=== PATIENT | male | born 1960 | race Caucasian/White ===

== ENCOUNTER → 2020-01-12 08:29 | Outpatient (BNVA) | payer MEDICARE, MEDICAID, SELFPAY | PROVIDERS: Family Provider Nurse Practitioner Family; PCP Nurse Practitioner Family; Referring Provider Nurse Practitioner Family; Visit Provider Specialist | DX: M79.641 Pain in right hand (principal) | CPT/HCPCS: 73130 ==

== ENCOUNTER → 2020-01-18 10:15 | Outpatient (BNVA) | payer MEDICARE, MEDICAID, SELFPAY | PROVIDERS: Family Provider Nurse Practitioner Family; PCP Nurse Practitioner Family; Visit Provider Internal Medicine | DX: M65.341 Trigger finger, right ring finger (principal) | CPT/HCPCS: 87635 ==

== ENCOUNTER 2020-01-20 08:51 | Day surgery (SDC) | payer MEDICARE, MEDICAID, SELFPAY ==
[2020-01-19 12:37] VITALS: BMI 34.9
[2020-01-20 09:05] VITALS: BP 151/97; PULSE 84; RESP 15; TEMP 36.7; O2SAT 96
[2020-01-20 09:16] LABS: Glucose Point of Care 91 mg/dL (70-110)
[2020-01-20] MEDS: CELEcoxib 200 mg Capsule 400 MG PO (09:24)
[2020-01-20] MEDS: sodium chloride 0.9% 1,000 ML 30 ML IV (09:24)
--- NOTE | 2020-01-20 10:40 | ANES.PREANE2 ---
Pre-Anesthetic Assessment Pre-Anesthetic Assessment: Height/Weight: Height 1.73 m Weight 104.326 kg Temp Pulse Resp BP Pulse Ox 98.1 F 84 15 151/97 96 01/20/20 09:05 01/20/20 09:05 01/20/20 09:05 01/20/20 09:05 01/20/20 09:05 Preop Diagnosis: Right ring triggering Proposed Procedure: Operation Date: 01/20/20 10:40 Proposed Procedures p Trigger Finger Release Ring Finger(Right) - Jessa Kent MD Familial anesthetic complications: None Was Beta Arvin taken within 24 hours: Yes Last intake: Intake Last Liquid Date 01/20/20 Last Liquid Time 05:00 Last Solid Date 01/19/20 Last Solid Time 20:00 Social: Social History: Tobacco Exam: Pre-Anes Outpt Exam: alert, oriented x 3, clear to auscultation bilaterally and regular rate & rhythm Airway: Cervical ROM: WNL MP: 4 Dentition: False Pulmonary: Pulmonary: COPD (2 L NC) and Sleep apnea (doesn't wear cpap) CV/HEM: CV/HEM: Afib and HTN Comments: hx vasovagal response (dx by [facility]) - says he starts coughing his neck swells up he shakes and passes out Happens if he chokes on his own swallow - has occured for years, may go months without occuring GI: GI: GERD Metabolic: Metabolic: DM and Morbid obesity Neuropsych: Neuropsych: TIA (2010) Anesthetic Plan: ASA status: 3 Anesthesia: Regional (specify below) (miguel block vs local only) Other: patient requesting no sedations Risk of > 500 ml blood loss (7ml/kg in children): No Meds/Allergies Current Medications: Current Medications Generic Name Dose Route Start Last Admin Trade Name Freq PRN Reason Stop Dose Admin Sodium Chloride 1,000 mls @ 30 ml s/hr 01/20/20 09:00 01/20/20 09:24 Sodium Chloride 0.9% IV 01/21/20 08:59 30 mls/hr .Q24H ROBERTO Administration PFSH Anesthesia PFSH: Medical History Accelerated essential hypertension COPD (chronic obstructive pulmonary disease) History of heart attack Surgical History History of carpal tunnel release right History of throat surgery Hx of appendectomy Family History Mother Stroke CAD (coronary artery disease) Social History Smoking and tobacco status: current every day smoker Data Anesthesia Other Labs: Laboratory Results - last 48 hr 01/20/20 09:12 POC Glucose 91 Cardiac Studies: No Data to Display
--- NOTE | 2020-01-20 11:42 | P.HPUD_ITS ---
Surgery/Procedure H&P Update DATE OF PROCEDURE: January 20, 2020 DATE H&P PERFORMED: 01/12/20 H&P UPDATE INFORMATION: I have reviewed H&P completed within last 30 days, I have examined patient prior to procedure, No changes to prior documentation and H&P is in [facility] on date indicated PREOP DIAGNOSIS: Right ring triggering PLANNED PROCEDURE: Operation Date: 01/20/20 10:40 Proposed Procedures p Trigger Finger Release Ring Finger(Right) - Jessa Kent MD Related Problem List Diagnoses (1) Trigger ring finger of right hand:
[2020-01-20 12:40] VITALS: BP 180/95; PULSE 80; RESP 20; TEMP 36.2; O2SAT 99
--- NOTE | 2020-01-20 12:55 | P.OP_ITS ---
Operative Report Date of procedure: January 20, 2020 Pre-op Diagnosis: Right ring triggering Post-op diagnosis: same Procedure Done: Right ring finger trigger release Specimens removed/disposition: None Pathology: none sent Surgeon: Jessa Kent Equipment Processer Storage: None Anesthesia: Other (Alessandra block without sedation) Estimated blood loss (mL): 0 Tourniquet time (min): 30 Tourniquet time: 300 mmHg IV fluids (mL): 600 Urine output (mL): 0 Complications: None Findings: Thickened A1 wilfred and synovium around the tendons Condition: stable Disposition: same day Brief History: This 59-year-old gentleman presented with complaints of significant triggering of the right ring finger. He wished to proceed with operative intervention. Risks and complications were discussed with him. Consents were signed preoperatively and questions were answered. Procedure: Patient was brought to the operating theater. He was placed on the operating room table. A Kildeer block was administered without difficulty. Patient tolerated it well. 2 g of Ancef was administered prophylactically. A tourniquet was p laced high on the arm and was elevated for the Alessandra block. This followed exsanguination of the arm. Tourniquet time was 30 minutes. Surgical pause was performed prior to commencement of the surgical procedure. At the time of the surgical pause we identified the site and side of surgery. We also identified the patient's identity and appropriate administration of IV antibiotics. Following the surgical pause, an incision was made along the distal palmar crease under the ring finger. Dissection continued through the skin to the subcutaneous tissues using a scalpel. Blunt dissection was then utilized to spread soft tissues and allow access to the A1 wilfred. Each A1 wilfred was identified. It was then incised longitudinally and sharply using a knife. This was accomplished without difficulty and atraumatically. Once the A1 wilfred was released, tendons were brought up out of the wound and evaluated. There were no gross masses on the tendons, but the synovium was noted to be quite thickened. This was released as well. Tendons were returned to normal position. We then irrigated the wound and subsequently closed it with 3-0 nylon with an interrupted mattress type suture. Following closure of the wound, the wound was injected with local anesthetic into the subcutaneous tissues. Sterile dressing was then placed consisting of Exofin, Telfa, Tegaderm, fluffed fluffs, sterile soft roll, and an Stoney wrap. The patient was returned to recovery in satisfactory condition. He will be discharged home to follow-up with me in the office. There were no complications and no specimens. Associated Problem List Diagnoses (1) Trigger ring finger of right hand:
[2020-01-20 13:14] VITALS: BP 186/91; PULSE 70; RESP 18; O2SAT 96
== END 2020-01-20 13:19 | disposition home or self-care (01) ==
PROVIDERS: PCP Nurse Practitioner Family; Visit Provider Specialist
PROC: (CPT 26055; principal; 2020-01-20 10:30)
DX: M65.341 Trigger finger, right ring finger (principal); J44.9 Chronic obstructive pulmonary disease, unspecified; G47.30 Sleep apnea, unspecified; Z99.81 Dependence on supplemental oxygen; K21.9 Gastro-esophageal reflux disease without esophagitis; E11.9 Type 2 diabetes mellitus without complications; E66.01 Morbid (severe) obesity due to excess calories; F17.210 Nicotine dependence, cigarettes, uncomplicated
CPT/HCPCS: 26055; 12345; 36416; 82962; 96365; J0131; J0690; J3490; J7030

== ENCOUNTER 2020-12-31 09:56 | Outpatient (CLI) | payer MEDICARE, MEDICAID, SELFPAY ==
--- NOTE | 2020-12-31 10:02 | CT_ITS ---
WS: [id number] LDCT LUNG CANCER SCREENING HISTORY: NICOTINE Dependence, cigarettes TECHNIQUE: Axial imaging performed from the apices to 1 cm below the costophrenic angles. Coronal and sagittal reformats are submitted with axial MIP series. All CT scans at [facility] use at least one of these dose optimization techniques: automated exposure control; mA and/or kV adjustment per patient size (includes targeted exams where dose is matched to clinical indication); or iterativ e reconstruction. DLP: 54.58 mGy.cm DIvol: 1.58 mGy COMPARISON: None available. Diagnostic quality: Satisfactory Lung Nodules: 3 mm nodule RIGHT upper lobe, image 94 series 3. No endobronchial lesions. Lungs: Moderate pulmonary hyperexpansion from emphysema. Heart: Mild scattered coronary artery calcifications. No pericardial effusion. Other findings: Mild atherosclerosis aorta. Pulmonary artery size is equal to the aorta. Small hiatal hernia. Limited evaluation of the upper abdominal structures. CT/CT lung screening 40323 IMPRESSION: LUNG-RADS: 2-Benign Appearance or Behavior FOLLOW UP: 12 Month: Continue annual screening with LDCT OTHER FINDINGS (S MODIFIER): None.
== END 2020-12-31 09:57 | disposition home or self-care (01) ==
PROVIDERS: PCP Nurse Practitioner Family; Visit Provider Nurse Practitioner Family
DX: Z12.2 Encounter for screening for malignant neoplasm of respiratory organs (principal); F17.210 Nicotine dependence, cigarettes, uncomplicated; I70.0 Atherosclerosis of aorta; K44.9 Diaphragmatic hernia without obstruction or gangrene
CPT/HCPCS: 71271

== ENCOUNTER → 2021-02-25 07:51 | Outpatient (BNVA) | payer MEDICARE, MEDICAID, SELFPAY | PROVIDERS: PCP Nurse Practitioner Family; Referring Provider Specialist; Visit Provider Nurse Practitioner | DX: R13.10 Dysphagia, unspecified (principal); G62.9 Polyneuropathy, unspecified; K21.9 Gastro-esophageal reflux disease without esophagitis; F17.200 Nicotine dependence, unspecified, uncomplicated | CPT/HCPCS: 99203; 99204 ==

== ENCOUNTER → 2021-05-29 08:43 | Outpatient (BNVA) | payer MEDICARE, MEDICAID, SELFPAY | PROVIDERS: PCP Nurse Practitioner Family; Visit Provider Internal Medicine | DX: E21.3 Hyperparathyroidism, unspecified (principal); R13.10 Dysphagia, unspecified; Z87.891 Personal history of nicotine dependence | CPT/HCPCS: 99214 ==

== ENCOUNTER 2021-06-11 13:32 | Outpatient (CLI) | payer MEDICARE, MEDICAID, SELFPAY ==
[2021-06-11 14:45] LABS: Basophils # 0.1 10^3/uL (0.0-0.1); Basophils % 0.8 %; Eosinophils # 0.1 10^3/uL (0.0-0.8); Eosinophils % 1.4 %; Hematocrit 30.5 % (42.0-52.0); Hemoglobin 8.7 g/dL (11.7-16.6); Lymphocytes # 2.5 10^3/uL (0.8-4.8); Lymphocytes % 38.2 %; Mean Corpuscular HGB Conc 28.5 g/dL (30.0-36.0); Mean Corpuscular Hemoglobin 20.3 pg (28.0-34.0); Mean Corpuscular Volume 71.3 fl (80-94); Monocytes # 0.5 10^3/uL (0.2-0.9); Monocytes % 8.2 %; Neutrophils # 3.31 10^3/uL (1.8-7.7); Neutrophils % 51.1 %; Nucleated Red Blood Cells % 0 %; Platelet Count 263 10^3/cmm (130-400); Red Blood Count 4.28 10^6/uL (4.1-5.3); Red Cell Distribution Width 18.8 % (12.1-15.1); White Blood Count 6.5 10^3/uL (4.0-10.0)
[2021-06-11 15:16] LABS: Carcinoembryonic Antigen 4.7 ng/mL (0.0-4.7)
[2021-06-11 15:27] LABS: Alanine Aminotransferase 11 U/L (0-41); Albumin Level 4.1 g/dL (3.5-5.2); Alkaline Phosphatase 90 IU/L (40-130); Anion Gap 16.4 (5-19); Aspartate Amino Transferase 12 U/L (0-40); Blood Urea Nitrogen 9 mg/dL (8-23); Calcium 8.4 mg/dL (8.5-10.5); Carbon Dioxide 24 mmol/L (22-29); Chloride 100 mmol/L (98-107); Globulin 3.3 g/dL (1.3-4.6); Glomerular Filtration Rate 114.6 mL/min (90-130); Glucose 189 mg/dL (65-115); Osmolality Calculated 288 mOsm/kg (285-295); Potassium 3.4 mmol/L (3.5-5.1); Sodium 137 mmol/L (136-145); Total Bilirubin 0.4 mg/dL (0.15-1.2); Total Protein 7.4 g/dL (6.6-8.7)
--- NOTE | 2021-06-11 16:50 | ONC CON_ITS ---
Dr. Ramos New Patient Note Patient: Ryne Carrasco Unit #: [id number]: 1960 Dicatated By: Nestor Ramos M.D.Date of Visit: Jun 11, 2021 Onc MED New Patient/Consult Referring Physician: Dr. RADHA WYLIE M.D. History of Present Illness: Mr Ryne Carrasco, is a 61-year-old gentleman status post robotic LAR for sigmoid/upper rectal adenocarcinoma on April 30, 2021. As per patient on March 10, 2021, he felt weak and tired, lethargic, went to [facility] ER in [facility], found to have severely anemic, his hemoglobin was 7.9 and also diagnosed with urine tract infection/sepsis, treated with IV antibiotics, patient responded well, he was referred to local GI physician for EGD and colonoscopy which was done in March 2021, and found to have upper rectal mass, he was referred to Dr. Wylie, patient underwent colonoscopy again on April 18, 2021, polyp from cecum was removed which was tubular adenoma and there was a upper rectal tumor, biopsy x4 were done and it shows tubular adenoma with at least high-grade dysplasia, CT scan of chest abdomen pelvis done on April 18, 2021 shows rectal mass lesion, associated with macroscopic mesorectal infiltration and multiple subcentimeter mesorectal lymph nodes, no distant metastatic disease, diffuse urinary bladder wall thickening suggestive of acute cystitis., His CEA was 20, based on clinical impression it was decided to proceed with robotic low anterior resection with en bloc resection of portion of lower anterior abdominal wall and peritoneum and excisional biopsy of edition prior to peritoneum was done on April 30, 2021. Final pathology report came back invasive moderately differentiated adenocarcinoma, tumor invades through muscularis propria into pericolorectal tissue, T3, 0 out of 44 lymph node positive for metastatic disease, no lymphovascular invasion seen, no perineural invasion seen. pT3 pN0 MX Past medical history significant for hypertension, diabetes, peripheral neuropathy, carpal tunnel syndrome, history of vocal cord warts removal, Chronic smoking, still active about pack a day, occasional alcohol use. Denies any fever chills denies any nausea or vomiting denies any diarrhea or constipation denies any melena or hematochezia but generalized weakness and fatigue. Past Medical History: Mr. Carrasco's medical history consists of atrial fibrillation, chronic obstructive pulmonary disease, and type II diabetes. Past Surgical History: Mr. 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 Medications: Acetaminophen 2 Tablet (of 325 mg) Oral q 6 hours, Albuterol Sulfate 1 Vial(s) (of (2.5 mg/3ml) 0.083%) Nebulization solution Inhalation four times a day PRN, Capsicum (Cayenne) 2 Capsule (of 450 mg) Oral daily, Cetirizine HCl 1 Tablet (of 10 mg) Oral daily, Docusate Sodium 1 Capsule (of 100 mg) Oral b.i.d. PRN, Lisinopril 1 Tablet (of 20 mg) Oral at bedtime, Lyrica 1 Capsule (of 100 mg) Oral b.i.d., Metoprolol Succinate 0.5 Capsule (of 200 mg) Capsule ER 24 Hr Sprinkle Oral daily, Ozempic (1 MG/DOSE) 1 (4 mg/3mL) Subcutaneous on , ProAir HFA 2 Puff(s) (of 108 (90 base) mcg/act) Aerosol, solution Inhalation PRN, Protonix 1 Tablet (of 40 mg) Tablet, enteric coated Oral, Rosuvastatin Calcium 1 Tablet (of 20 mg) Oral at bedtime, Vitamin D2 1 Tablet (of 1.25 mg) Oral q 2 weeks Allergies: No Known Allergies. Social History: Mr. Carrasco is . He is a daily smoker. He drinks daily. He has indicated exposure to the following products: cigarettes. Family History: There is no documented family history. Review Of Symptoms: Review of Systems is not available for this patient. Vital Signs: Performed on Jun 11, 2021 15:20: 4, 0, 35.09 (HIGH), 2.17 sq.m, 68 in, 97 %, 87 /min, 18 /min, 152/83 mm(hg) (HIGH), 98.3 F (LOW), and 230.8 lbs (HIGH). Performance Status: 0 - Fully active, able to carry on all predisease activities without restrictions. (ECOG) Physical Examination: ENMT - No mouth sores, no thrush, no jaundice, Respiratory - Lungs are clear to auscultation, Cardiovascular - Regular rate and rhythm of heart, Abdomen - Soft, bowel sounds present, Extremities - No visible edema. Lab/Imaging: Most recent lab results are not available for this patient. Impression: Moderately differentiated adenocarcinoma involving upper rectum/sigmoid colon per robotic LAR done on April 30, 2021 final pathology report confirmed tumor invades through muscularis propria into pericolorectal tissue, T3, 0 out of 44 lymph nodes positive for metastatic disease, N0, no lymphovascular invasion, no perineural invasion, as per discussion with Dr. Garcia, pathology tumor invades into mesorectal, more than 4 mm. And 1 and half centimeter into upper rectum. Iron deficiency anemia Hypertension Diabetes Neuropathy Carpal tunnel syndrome Plan: Discussed with patient regarding his Labs white blood count 6.5 hemoglobin 8.7 hematocrit 30.5 platelets 263,000 and MCV 71.3, iron studies pending and CMP pending disease status and further treatment options, clinically patient has T3, N0 moderately differentiated adenocarcinoma with no lymphovascular/perineural invasion but more than 4 mm infiltration into mesorectal tissue. As per NCCN guidelines, patient is a candidate for adjuvant combined chemoradiation with 5-FU followed by chemotherapy with FOLFOX or chemotherapy followed by chemoradiation or chemotherapy alone., Would not consider observation as his tumor invasion into the mesorectum is more than 2 mm. As per patient and his , as they understood surgeon Dr. Wylie that he (patient) would not need any more treatment rather observation, Will discuss his case with Dr. Wylie,As per his office, he will be available in the morning At this point, we will refer him to [facility] GI oncology clinic for evaluation for clinical trial and second opinion. Patient return to clinic 1 week after his visit to [place] [facility] oncology clinic, for further discussion unless enrolled into clinical trial. As far as iron deficiency anemia is concerned, will consider oral iron, ferrous sulfate 325 mg 2 tablets p.o. daily and follow his blood counts CBC and iron studies. Signed By: Nestor Ramos M.D. <<Signature on File>>
[2021-06-11 22:29] LABS: Ferritin 7 ng/mL (30-400); Iron 22 ug/dL (59-158); Percent Saturation 5.2 % (20-50); Total Iron Binding Capacity 420 mcg/dl; Unsaturated Iron Binding 398 ug/dL (112-347)
[2021-06-11 22:43] LABS: Vitamin B12 249 pg/mL (232-1245)
== END 2021-06-11 13:33 | disposition home or self-care (01) ==
LOC: ONCMED 13:39
PROVIDERS: PCP Nurse Practitioner Family; Visit Provider Internal Medicine Hematology & Oncology
DX: C18.7 Malignant neoplasm of sigmoid colon (principal); C77.8 Secondary and unspecified malignant neoplasm of lymph nodes of multiple regions; D50.9 Iron deficiency anemia, unspecified; I10 Essential (primary) hypertension; E11.8 Type 2 diabetes mellitus with unspecified complications; G62.9 Polyneuropathy, unspecified; G56.00 Carpal tunnel syndrome, unspecified upper limb
CPT/HCPCS: 36415; 80053; 82378; 82607; 82728; 83540; 83550; 85025; 99205

== ENCOUNTER 2021-07-04 10:17 | Outpatient (CLI) | payer MEDICARE, MEDICAID, SELFPAY ==
[2021-07-04 11:05] LABS: Basophils % 0.4 %; Eosinophils # 0.1 10^3/uL (0.0-0.8); Eosinophils % 1.1 %; Hematocrit 36.5 % (42.0-52.0); Hemoglobin 10.9 g/dL (11.7-16.6); Lymphocytes # 2.4 10^3/uL (0.8-4.8); Lymphocytes % 51.5 %; Mean Corpuscular HGB Conc 29.9 g/dL (30.0-36.0); Mean Corpuscular Hemoglobin 24.2 pg (28.0-34.0); Mean Corpuscular Volume 80.9 fl (80-94); Mean Platelet Volume 9.2 fL (7.4-10.4); Monocytes # 0.4 10^3/uL (0.2-0.9); Monocytes % 8.8 %; Neutrophils # 1.77 10^3/uL (1.8-7.7); Neutrophils % 38.2 %; Nucleated Red Blood Cells % 0 %; Platelet Count 189 10^3/cmm (130-400); Red Blood Count 4.51 10^6/uL (4.1-5.3); Red Cell Distribution Width 25.4 % (12.1-15.1); White Blood Count 4.6 10^3/uL (4.0-10.0)
[2021-07-04 12:22] LABS: Ferritin 24 ng/mL (30-400); Iron 31 ug/dL (59-158); Percent Saturation 8.4 % (20-50); Total Iron Binding Capacity 368 mcg/dl; Unsaturated Iron Binding 337 ug/dL (112-347)
--- NOTE | 2021-07-04 15:19 | ONC FU_ITS ---
Dr. Ramos follow up note Patient: Ryne Carrasco Unit #: [id number]: 1960 Dicatated By: Nestor Ramos M.D.Date of Visit:Jul 04, 2021 Onc Med Follow-up/Prog Note History of Present Illness: Mr Ryne Carrasco, is a 61-year-old gentleman status post robotic LAR for sigmoid/upper rectal adenocarcinoma on April 30, 2021. As per patient on March 10, 2021, he felt weak and tired, lethargic, went to [facility] ER in [facility], found to have severely anemic, his hemoglobin was 7.9 and also diagnosed with urine tract infection/sepsis, treated with IV antibiotics, patient responded well, he was referred to local GI physician for EGD and colonoscopy which was done in March 2021, and found to have upper rectal mass, he was referred to Dr. Wylie, patient underwent colonoscopy again on April 18, 2021, polyp from cecum was removed which was tubular adenoma and there was a upper rectal tumor, biopsy x4 were done and it shows tubular adenoma with at least high-grade dysplasia, CT scan of chest abdomen pelvis done on April 18, 2021 shows rectal mass lesion, associated with macroscopic mesorectal infiltration and multiple subcentimeter mesorectal lymph nodes, no distant metastatic disease, diffuse urinary bladder wall thickening suggestive of acute cystitis., His CEA was 20, based on clinical impression it was decided to proceed with robotic low anterior resection with en bloc resection of portion of lower anterior abdominal wall and peritoneum and excisional biopsy of edition prior to peritoneum was done on April 30, 2021. Final pathology report came back invasive moderately differentiated adenocarcinoma, tumor invades through muscularis propria into pericolorectal tissue, T3, 0 out of 44 lymph node positive for metastatic disease, no lymphovascular invasion seen, no perineural invasion seen. pT3 pN0 MX Past medical history significant for hypertension, diabetes, peripheral neuropathy, carpal tunnel syndrome, history of vocal cord warts removal, Chronic smoking, still active about pack a day, occasional alcohol use. Denies any fever chills denies any nausea or vomiting denies any diarrhea or constipation denies any melena or hematochezia but generalized weakness and fatigue.Patient was referred to [facility] for evaluation for clinical trial, as per discussion with Dr. Connelly, medical oncologist at [facility], patient would need adjuvant therapy, either with combined chemoradiation followed by FOLFOX or FOLFOX followed by short course of radiation therapy at [facility]. Patient [facility] [place] for follow-up, denies any specific complaints, no fever chills, no nausea or vomiting, no diarrhea constipation, no melena or hematochezia, no hemoptysis hematemesis, as per patient he had a good visit to [facility] and understood the importance of adjuvant therapy. Would consider all his treatment [facility] [place]. Medications: Acetaminophen 2 Tablet (of 325 mg) Oral q 6 hours, Albuterol Sulfate 1 Vial(s) (of (2.5 mg/3ml) 0.083%) Nebulization solution Inhalation four times a day PRN, Capsicum (Cayenne) 2 Capsule (of 450 mg) Oral daily, Cetirizine HCl 1 Tablet (of 10 mg) Oral daily, Docusate Sodium 1 Capsule (of 100 mg) Oral b.i.d. PRN, Lisinopril 1 Tablet (of 20 mg) Oral at bedtime, Lyrica 1 Capsule (of 100 mg) Oral b.i.d., Metoprolol Succinate 0.5 Capsule (of 200 mg) Capsule ER 24 Hr Sprinkle Oral daily, Ozempic (1 MG/DOSE) 1 (4 mg/3mL) Subcutaneous on , ProAir HFA 2 Puff(s) (of 108 (90 base) mcg/act) Aerosol, solution Inhalation PRN, Protonix 1 Tablet (of 40 mg) Tablet, enteric coated Oral, Rosuvastatin Calcium 1 Tablet (of 20 mg) Oral at bedtime, Vitamin D2 1 Tablet (of 1.25 mg) Oral q 2 weeks Allergies: No Known Allergies. Review of Systems: Review of Systems is not available for this patient. Vital Signs: Performed on Jul 04, 2021 14:11 Height - 68.00 in Weight - 231.0 lbs (HIGH) BSA - 2.17 sq.m BMI - 35.12 (HIGH) Temperature - 97.8 F (LOW) Pulse - 81 /min Respiration - 16 /min BP - 162/93 mm(hg) (HIGH) O2 Sat - 98 % Pain - 0 Fatigue - 2 Performance Status: 0 - Fully active, able to carry on all predisease activities without restrictions. (ECOG) Physical Examination: ENMT - No mouth sores, no thrush, no jaundice, Respiratory - Lungs are clear to auscultation, Cardiovascular - Regular rate and rhythm of heart, Abdomen - Soft, bowel sounds present, Extremities - No visible edema. Lab/Imaging: Most recent lab results are not available for this patient. Impression: Moderately differentiated adenocarcinoma involving upper rectum/sigmoid colon per robotic LAR done on April 30, 2021 final pathology report confirmed tumor invades through muscularis propria into pericolorectal tissue, T3, 0 out of 44 lymph nodes positive for metastatic disease, N0, no lymphovascular invasion, no perineural invasion, as per discussion with Dr. Garcia, pathology tumor invades into mesorectal, more than 4 mm. And 1 and half centimeter into upper rectum. Iron deficiency anemia Hypertension Diabetes Neuropathy Carpal tunnel syndrome Plan: Discussed with patient regarding his labs white blood count 4.6 hemoglobin 10.9 g compared to 8.7 g previously hematocrit 36.5 platelets 189,000 iron studies shows iron saturation 8.4% compared to 5.2% previously ferritin 24 compared to 7 and iron 31 compared to 22 previously TIBC 368, B12 249, CEA 4.7 Clinically, patient is doing reasonably well, with no new signs symptoms, patient was referred to [facility] in [place] for evaluation for clinical trial. He was evaluated by Dr. Connelly, as per discussion with her yesterday, she agreed with us regarding adjuvant therapy, patient was offered 2 options 1 would be FOLFOX biweekly x12 followed by a short course of radiation therapy at [facility] and other is a traditional combined chemoradiation with oral Xeloda followed by FOLFOX x8. Patient prefer to get all his treatment done here in [place]. In that case we will refer him to radiation oncology Dr. Carrasco for evaluation for adjuvant chemoradiation with oral Xeloda, will consider 825 mg per metered square twice daily concurrent with radiation therapy, followed by FOLFOX biweekly x8. All the side effect possible benefits associated with chemotherapy including but not limited to, nausea vomiting, hair loss, peripheral neuropathy, hand-foot syndrome, mouth sores, jaundice were mentioned, further teaching will be done by chemotherapy nurse. We will obtain approval from his insurance prior to the treatment. As far as anemia is concerned, patient is on oral iron, his hemoglobin is improving, will also consider adding B12 supplements. Patient return to clinic 1 week after his chemoradiation therapy is initiated with CBC CMP, will also consider Port-A-Cath placement prior to FOLFOX. Signed By: Nestor Ramos M.D. <<Signature on File>>
== END 2021-07-04 10:18 | disposition home or self-care (01) ==
LOC: ONCMED 10:22
PROVIDERS: PCP Nurse Practitioner Family; Visit Provider Internal Medicine Hematology & Oncology
DX: C19 Malignant neoplasm of rectosigmoid junction (principal); D50.9 Iron deficiency anemia, unspecified; I10 Essential (primary) hypertension; E11.9 Type 2 diabetes mellitus without complications; G62.9 Polyneuropathy, unspecified; Z79.899 Other long term (current) drug therapy
CPT/HCPCS: 36415; 82728; 83540; 83550; 85025; 99214

== ENCOUNTER 2021-07-10 06:43 | Outpatient (CLI) | payer MEDICARE, MEDICAID, SELFPAY ==
--- NOTE | 2021-07-10 09:08 | N.ONRAD NP_ITS ---
Radiation Oncology Consultation Patient Name: Ryne Carrasco Date of : 1960 Date of Service: 07/10/2021 Attending Physician: Chi Carrasco M.D. Ryne Carrasco was seen in consultation this morning at the request of Lise Ramos M.D. for consideration of postoperative pelvic radiotherapy in the management of a recently diagnosed rectal cancer. He was evaluated emergency department the [facility] Emergency Department in [place], [place] for fatigue. A hemoglobin of 8 g/dL was noted. An EGD and colonoscopy completed in March 2021 identified a rectal mass. He was referred to [facility] and evaluated by Johnnie Wylie M.D. A thoracoabdominopelvic CT scan ordered on April 18, 2021 demonstrated a rectal mass that was 7 cm from the anal verge. Mesorectal infiltration was described with subcentimeter perirectal lymphadenopathy identified. No evidence for metastatic disease was reported. A colonoscopy executed on April 18, 2021 revealed a cecal polyp, a proximal transverse colon polyp, and a large rectal mass. The rectal mass biopsy showed stromal desmoplasia suggesting an invasive component and a tubular adenoma was noted within the cecal polyp. The CEA level was 20 ng/mL. A laparoscopic robotic low anterior resection was performed on April 30, 2021. The pathology report (requested from the outside hospital and personally reviewed in [facility]) diagnosed a 6.6 cm x 4.5 cm moderately differentiated adenocarcinoma with invasion through the muscularis propria into the pericolorectal tissue. All surgical margins were negative for carcinoma. A total of 44 lymph nodes were harvested. There were no metastases identified. The post-operative CEA level was 4.7 ng/mL. The patient was evaluated for adjuvant radiotherapy. I discussed with Mr. Carrasco the AJCC pathological stage IIA (T3N0) rectal cancer corresponding to his disease. I also reviewed the National Comprehensive Cancer Network Guidelines recommending adjuvant chemoradiotherapy following transabdominal resection for high-risk tumors that was established by the classic study conducted by the [facility] that validated combined modality therapy improved overall survival while decreasing locoregional recurrence and distant metastases. I would endorse a five week course of pelvic radiotherapy. A computed tomographic radiotherapy planning scan with contrast in the treatment position will be acquired to identify the clinical target volumes. The potential toxicities of pelvic radiotherapy were reviewed. The patient has verbalized understanding would like to proceed as recommended. The patient's medical treatment plan was discussed with Lise Ramos M.D. Signed by: Dr. Chi Carrasco 07/10/2021 9:06:52 AM
== END 2021-07-10 06:44 | disposition home or self-care (01) ==
PROVIDERS: PCP Nurse Practitioner Family; Visit Provider Radiology Radiation Oncology
DX: C20 Malignant neoplasm of rectum (principal); C77.8 Secondary and unspecified malignant neoplasm of lymph nodes of multiple regions; D12.0 Benign neoplasm of cecum; Z79.899 Other long term (current) drug therapy
CPT/HCPCS: 99205

== ENCOUNTER → 2021-07-12 16:09 | Outpatient (BNVA) | payer MEDICARE, MEDICAID, SELFPAY | PROVIDERS: PCP Nurse Practitioner Family; Visit Provider Surgery | DX: Z01.818 Encounter for other preprocedural examination (principal) | CPT/HCPCS: 87635 ==

== ENCOUNTER → 2021-07-15 10:40 | Outpatient (BNVA) | payer MEDICARE, MEDICAID, SELFPAY | PROVIDERS: PCP Nurse Practitioner Family; Visit Provider Surgery | DX: C20 Malignant neoplasm of rectum (principal) | CPT/HCPCS: 87635 ==

== ENCOUNTER 2021-07-16 09:49 | Day surgery (SDC) | payer MEDICARE, MEDICAID, SELFPAY ==
[2021-07-15 15:30] VITALS: BMI 35.2
--- NOTE | 2021-07-16 | SCC_ITS ---
Procedure done: 1. Placement of Right subclavian vein PowerPort 2. Fluoroscopic guidance and interpretation for placement of catheter 24.6 seconds of fluoroscopic guidance, for a cumulative dose of 8.57 mGy, was provided to Dr. Hernandez by the radiology department. C-arm images of the chest were saved for the patient's permanent record. [facility]
--- NOTE | 2021-07-16 10:10 | SC_ITS ---
WS: [id number] C-arm FL for CVA [id number] REASON FOR EXAM: Powerport Placement FINDINGS: Chemotherapy infusion port in place over the right anterolateral chest. Transverse right subclavian vein catheter with the tip in the distal SVC/right atrium. No pneumothorax. SC/C-arm FL for CVA [id number] IMPRESSION: Chemotherapy infusion port and catheter placement as above.
[2021-07-16 10:24] VITALS: BP 169/103; PULSE 85; RESP 18; TEMP 36.4; O2SAT 99
[2021-07-16] MEDS: sodium chloride 0.9% 1,000 ML 30 ML IV (10:44)
--- NOTE | 2021-07-16 10:53 | ANES.PREANE2 ---
Pre-Anesthetic Assessment Height/Weight: Height 1.73 m Weight 105.233 kg Temp Pulse Resp BP Pulse Ox 97.5 F L 85 18 169/103 99 07/16/21 10:24 07/16/21 10:24 07/16/21 10:24 07/16/21 10:24 07/16/21 10:24 Preop Diagnosis: Rectal cancer Operation Date: 07/16/21 11:25 Proposed Procedures p Portacath Placement 87663/c20(Not Applicable) - Raheem Hernandez MD Was Beta Arvin taken within 24 hours: Yes Was Clonidine taken within 24 hours: N/A Last intake: Intake Last Liquid Date 07/15/21 Last Liquid Time 21:30 Last Solid Date 07/15/21 Last Solid Time 18:00 Social Tobacco and No alcohol Exam alert, oriented x 3 and clear to auscultation bilaterally Irregular rate Airway Submandibular: within normal limits Cervical ROM: within normal limits Mallampati: Class II Dentition: false History/ROS No significant history except as noted Pulmonary Chronic Obstructive Pulmonary Disease Pulm HTN CV/HEM Atrial Fibrillation and Anemia METS = 4 Hepatic None reported GI Gastroesophageal Reflux Disease Metabolic Diabetes Mellitus [facility] Osteoarthritis/DJD Neuropsych Cerebrovascular Accident (TIA) and Neuropathy Anesthetic Plan ASA status: 3 Anesthesia: Anesthesia Evaluation and General Other: We discussed risk and benefits of general anesthesia including PONV, sore throat (sometimes severe), corneal abrasion, positioning and peripheral nerve injuries, life threatening allergic reaction, post operative ICU admission requiring prolonged intubation, stroke, heart attack, , and rare incidences of recall. Patient consents to proceed with general anesthesia. Risk of > 500 ml blood loss (7ml/kg in children): No Medications/Allergies Home Medications Medication Instructions Recorded Confirmed Last Taken Type cetirizine 10 mg tablet 10 mg PO DAILY 01/12/20 07/16/21 07/15/21 History lisinopril 20 mg tablet 20 mg PO BEDTIME 01/12/20 07/16/21 07/15/21 History nitroglycerin 0.4 mg sublingual 0.4 mg SUBLINGUAL Q5M PRN 01/12/20 07/15/21 Unknown History tablet (Nitrostat) pregabalin 100 mg capsule (Lyrica) 100 mg PO BID 01/12/20 07/16/21 07/15/21 History rosuvastatin 20 mg tablet (Crestor) 20 mg PO DAILY 01/19/20 07/16/21 07/15/21 History hydrocodone 5 mg-acetaminophen 325 1 tab PO Q6H PRN #28 tab 01/20/20 07/15/21 Unknown Rx mg tablet semaglutide 1 mg/dose (2 mg/1.5 0.25 mg SUBCUT .Weekly ml 02/22/21 07/16/21 07/13/21 History mL) subcutaneous pen injector (Ozempic) albuterol sulfate 90 mcg/actuation 2 puff INHALATION Q6H PRN 03/12/21 07/16/21 07/10/21 History aerosol inhaler (ProAir HFA) ergocalciferol (vitamin D2) 1,250 1,250 mcg PO DIRECTED cap 03/12/21 07/16/21 07/13/21 History mcg (50,000 unit) capsule ipratropium 0.5 mg-albuterol 3 mg 3 ml INHALATION QID 03/12/21 07/15/21 Unknown History (2.5 mg base)/3 mL nebulization soln metoprolol tartrate 100 mg tablet 100 mg PO QAM tab 03/12/21 07/16/21 07/15/21 05:00 History pantoprazole 40 mg tablet,delayed 40 mg PO DAILY #30 tab 03/12/21 07/16/21 07/15/21 Rx release docusate sodium 100 mg capsule 100 mg PO BID 05/15/21 07/16/21 Unknown History capsicum (cayenne) 500 mg capsule 500 mg PO BID 07/10/21 07/16/21 07/15/21 History Allergies Allergy/AdvReac Type Severity Reaction Status Date / Time No Known Allergies Allergy Verified 07/15/21 15:24 Current Medications Generic Name Dose Route Start Last Admin Trade Name Freq PRN Reason Stop Dose Admin Sodium Chloride 1,000 mls @ 30 mls/hr 07/16/21 10:15 07/16/21 10:44 Sodium Chloride 0.9% IV 07/17/21 10:14 30 mls/hr .Q24H ROBERTO Administration PFSH Anesthesia Medical History Accelerated essential hypertension Atrial fibrillation Atrial fibrillation COPD (chronic obstructive pulmonary disease) Diabetes mellitus Diabetic neuropathy History of heart attack History of TIA (transient ischemic attack) Odynophagia Pulmonary hypertension Surgical History History of carpal tunnel release right History of throat surgery Hx of appendectomy S/P colon resection Family History Mother Stroke CAD (coronary artery disease) Hypertension Diabetes Son Diabetes Father , Lung CA Cancer Brother , NE @ age 45 Myocardial infarct Sister , Breast CA X1 sister Aneurysm X1 sister Cancer Brain aneurysm Social History Smoking and tobacco status: current every day smoker (2-3 ppd X50+ years (quit 2020)) Alcohol intake: never History of recent travel: No Data Anesthesia Cardiac Studies: No Data to Display
--- NOTE | 2021-07-16 11:13 | W.PM.OPSUD ---
Surgery/Procedure H&P Update DATE OF PROCEDURE: July 16, 2021 DATE H&P PERFORMED: 07/10/21 PREOP DIAGNOSIS: Rectal cancer PRIMARY INDICATION FOR PROCEDURE: The same PLANNED PROCEDURE: Operation Date: 07/16/21 11:25 Proposed Procedures p Portacath Placement 08194/c20(Not Applicable) - Raheem Hernandez MD
[2021-07-16] MEDS: lidocaine 2% INJ 20 mL INJECTION (11:43)
[2021-07-16] MEDS: heparin, porcine 1,000 unit/mL INJ 10 mL 9000 UNIT IRRIGATION (11:53)
--- NOTE | 2021-07-16 12:07 | XR_ITS ---
WS: [id number] XR chest 1V portable [id number] REASON FOR EXAM: s/p portacath placement-right side FINDINGS: Chemotherapy infusion port in place over the anterolateral right chest. Port catheter transvenous rig ht subclavian vein with the tip in the superior vena cava just above the right atrium. No right pneumothorax. The heart and mediastinum are within normal limits. Calcified granulomatous disease in both hemithoraces. No acute pulmonary parenchymal or pleural abnormality. XR/XR chest 1V portable [id number] IMPRESSION: Right chemotherapy infusion port and catheter in proper position. No acute pulmonary abnormality.
--- NOTE | 2021-07-16 12:12 | P.OP_ITS ---
Operative Report Date of procedure: July 16, 2021 Pre-op diagnosis: Preop Diagnosis Rectal cancer Post-op diagnosis: The same Procedure done: 1. Placement of Right subclavian vein PowerPort 2. Fluoroscopic guidance and interpretation for placement of catheter Implants: Right subclavian vein PowerPort placement Surgeon: Raheem Hernandez MD Senior Business Development Manager: Surgical mely Quach Anesthesia: MAC (Louann Dominguez) Estimated blood loss (mL): 5 Complications: No immediate complications Procedure: Patient was identified in the holding area and taken to the operative room and placed in supine position IV propofol was given by the anesthesia provider ,both arms were tucked,Time-out was done verifying the patient's name/date of /planned procedure and destination after the procedure, all were in agreement. SCDs confirmed to be functioning, preoperative antibiotics administered per protocol, and beta garrett protocol was confirmed, appropriate positioning of the patient was done by me. Medications were reviewed to assess for anticoagulant usage. Risks and benefits and prevention of central line associated blood stream infection (CLABSI) were discussed with the patient/CPOA, and a consent was obtained. Monitors were in place and monitored throughout the procedure. All necessary supplies were available prior to start. Hand hygiene was completed prior to starting. Maximum barrier technique was utilized including a sterile gown, sterile gloves with a hat and mask. Site was was prepped with [chlorhexidine] and a full body drape was placed. 5 mL of 2% lidocaine was injected into the skin with a 25 gauge needle. Prep& drape was done under the usual sterile technique, lidocaine 2% was injected at the site of the stick, started by Right subclavian stick that retrieved venous blood was obtained from the first stick, a guidewire was then threaded and under the guidance of fluoroscopy position was confirmed to be in the IVC and my interpretation, there was no PVC changes, at that point the guidewire was secured to the drapes with a hemostat and the needle was taken out, attention was then deviated towards creation of a pocket for the port were lidocaine 2% was injected using an 15 blade knife skin incision was created dissection using the Bovie to create a pocket for the PowerPort to be accommodated, hemostasis was secured, after the port being appropriately flushed it was inserted into the pocket and a tunneler was used to accommodate the catheter of the PowerPort to be delivered through the incision first created at the site of the stick, at that point under fluoroscopy an estimated length was measured for the catheter and was cut at the designed level, followed by that a dilator with the sheath introduced onto the guidewire the dilator and the wire were retrieved and the catheter of the port was introduced via the sheath where it was peeled off and the catheter maintained to be in the SVC that was confirmed with fluoroscopy, and the fluoroscopy interpretation was done by me throughout the entire procedure. The port was Kept in its pocket yet it did require some adjustments in the prior to closure., 3-0 Vicryl deep subdermal interrupted sutures, skin was then closed by 4-0 Monocryl as subcuticular closure. The port was appropriately flushed with heparin and venous blood was withdrawn without difficulty. The stick site was closed by 3-0 Vicryl and Dermabond was used followed by dressing. Patient tolerated the procedure well was taken to the recovery area. Count was correct at the end of the procedure I was present for the whole entire procedure Position of the catheter was checked with a postoperative chest x-ray and it was in good position without evidence of pneumothorax
[2021-07-16 12:21] VITALS: BP 165/90; PULSE 106; RESP 20; TEMP 36.4; O2SAT 93
[2021-07-16 12:25] VITALS: BP 174/94; PULSE 107; RESP 18; O2SAT 92
--- NOTE | 2021-07-16 15:15 | ANE.PACU2 ---
Inpatient post-anesthesia follow up: Airway intact: Yes Vital signs: Temperature 97.5 F Pulse Rate 107 Respiratory Rate 18 Blood Pressure 174/94 Pulse Oximetry 92 Oxygen Delivery Me thod Room Air Oxygen Flow Rate Fraction of Inspir ed Oxygen Hydration adequate: Yes Nausea and vomiting: No Pain level: 1 Mental status: Baseline
== END 2021-07-16 13:20 | disposition home or self-care (01) ==
PROVIDERS: PCP Nurse Practitioner Family; Visit Provider Surgery
PROC: (CPT 36561; principal; 2021-07-16 11:20)
DX: C20 Malignant neoplasm of rectum (principal); J44.9 Chronic obstructive pulmonary disease, unspecified; I10 Essential (primary) hypertension; I27.20 Pulmonary hypertension, unspecified; I48.91 Unspecified atrial fibrillation; K21.9 Gastro-esophageal reflux disease without esophagitis; M19.90 Unspecified osteoarthritis, unspecified site; Z86.73 Personal history of transient ischemic attack (TIA), and cerebral infarction without residual deficits; E11.42 Type 2 diabetes mellitus with diabetic polyneuropathy; Z90.49 Acquired absence of other specified parts of digestive tract; F17.210 Nicotine dependence, cigarettes, uncomplicated
CPT/HCPCS: 36561; 71045; 76000; 77001; 96374; C1788; J0690; J1644; J2250; J2704; J3010; J3490; J7030

== ENCOUNTER 2021-08-12 07:22 | Outpatient (RCR) | payer MEDICARE, MEDICAID, SELFPAY ==
--- NOTE | 2021-07-17 | CT_ITS ---
Radiation Therapy Planning CT images; total exam DLP: 1411.75 mGy-cm MTDD
[2021-07-24 08:28] LABS: Basophils % 0.5 %; Eosinophils # 0.1 10^3/uL (0.0-0.8); Eosinophils % 1.4 %; Hematocrit 38.7 % (42.0-52.0); Lymphocytes # 2.9 10^3/uL (0.8-4.8); Lymphocytes % 37.5 %; Mean Corpuscular Hemoglobin 24.9 pg (28.0-34.0); Mean Corpuscular Volume 80.3 fl (80-94); Mean Platelet Volume 9.7 fL (7.4-10.4); Monocytes # 0.5 10^3/uL (0.2-0.9); Monocytes % 6.4 %; Neutrophils # 4.13 10^3/uL (1.8-7.7); Neutrophils % 53.9 %; Nucleated Red Blood Cells % 0 %; Platelet Count 215 10^3/cmm (130-400); Red Blood Count 4.82 10^6/uL (4.1-5.3); Red Cell Distribution Width 22.5 % (12.1-15.1); White Blood Count 7.7 10^3/uL (4.0-10.0)
[2021-07-24 08:54] LABS: Alanine Aminotransferase 12 U/L (0-41); Albumin Level 4.2 g/dL (3.5-5.2); Alkaline Phosphatase 87 IU/L (40-130); Aspartate Amino Transferase 15 U/L (0-40); Blood Urea Nitrogen 7 mg/dL (8-23); Calcium 9.1 mg/dL (8.5-10.5); Carbon Dioxide 23 mmol/L (22-29); Chloride 100 mmol/L (98-107); Globulin 2.6 g/dL (1.3-4.6); Glomerular Filtration Rate 98.3 mL/min (90-130); Glucose 174 mg/dL (65-115); Osmolality Calculated 282 mOsm/kg (285-295); Sodium 135 mmol/L (136-145); Total Bilirubin 0.4 mg/dL (0.15-1.2); Total Protein 6.8 g/dL (6.6-8.7)
[2021-07-24 09:08] LABS: Anion Gap 15.2 (5-19); Potassium 3.2 mmol/L (3.5-5.1)
[2021-07-24 21:37] LABS: Carcinoembryonic Antigen 3.8 ng/mL (0.0-4.7)
[2021-07-30 13:10] LABS: Basophils # 0.1 10^3/uL (0.0-0.1); Basophils % 0.8 %; Eosinophils # 0.1 10^3/uL (0.0-0.8); Eosinophils % 1.7 %; Hematocrit 38.1 % (42.0-52.0); Hemoglobin 11.6 g/dL (11.7-16.6); Lymphocytes # 2.5 10^3/uL (0.8-4.8); Lymphocytes % 38.2 %; Mean Corpuscular HGB Conc 30.4 g/dL (30.0-36.0); Mean Corpuscular Hemoglobin 24.7 pg (28.0-34.0); Mean Corpuscular Volume 81.1 fl (80-94); Mean Platelet Volume 9.3 fL (7.4-10.4); Monocytes # 0.4 10^3/uL (0.2-0.9); Monocytes % 5.6 %; Neutrophils # 3.51 10^3/uL (1.8-7.7); Neutrophils % 53.5 %; Nucleated Red Blood Cells % 0 %; Platelet Count 222 10^3/cmm (130-400); Red Cell Distribution Width 21.8 % (12.1-15.1); White Blood Count 6.6 10^3/uL (4.0-10.0)
[2021-07-30 13:29] LABS: Alanine Aminotransferase 9 U/L (0-41); Albumin Level 4.4 g/dL (3.5-5.2); Alkaline Phosphatase 83 IU/L (40-130); Anion Gap 12.8 (5-19); Aspartate Amino Transferase 14 U/L (0-40); Blood Urea Nitrogen 6 mg/dL (8-23); Calcium 9.1 mg/dL (8.5-10.5); Carbon Dioxide 27 mmol/L (22-29); Chloride 101 mmol/L (98-107); Globulin 3.1 g/dL (1.3-4.6); Glucose 108 mg/dL (65-115); Osmolality Calculated 282 mOsm/kg (285-295); Potassium 3.8 mmol/L (3.5-5.1); Sodium 137 mmol/L (136-145); Total Bilirubin 0.6 mg/dL (0.15-1.2); Total Protein 7.5 g/dL (6.6-8.7)
--- NOTE | 2021-07-30 13:37 | ONCRAD TMN_ITS ---
Radiation Oncology Treatment Management Note Patient Name: Ryne Carrasco Date of : 1960 Date of Service: 07/30/2021 Attending Physician: Chi Carrasco M.D. Ryne Carrasco is a 61 year old white male diagnosed with a pathological stage IIA (T3N0) rectal cancer. He was evaluated emergency department the [facility] Emergency Department in [place], [place] for fatigue. A hemoglobin of 8 g/dL was noted. An EGD and colonoscopy completed in March 2021 identified a rectal mass. He was referred to [facility] and evaluated by Johnnie Wylie M.D. A thoracoabdominopelvic CT scan ordered on April 18, 2021 demonstrated a rectal mass that was 7 cm from the anal verge. Mesorectal infiltration was described with subcentimeter perirectal lymphadenopathy identified. No evidence for metastatic disease was reported. A colonoscopy executed on April 18, 2021 revealed a cecal polyp, a proximal transverse colon polyp, and a large rectal mass. The rectal mass biopsy showed stromal desmoplasia suggesting an invasive component and a tubular adenoma was noted within the cecal polyp. The CEA level was 20 ng/mL. A laparoscopic robotic low anterior resection was performed on April 30, 2021. The pathology report (requested from the outside hospital and personally reviewed in [facility]) diagnosed a 6.6 cm x 4.5 cm moderately differentiated adenocarcinoma with invasion through the muscularis propria into the pericolorectal tissue. All surgical margins were negative for carcinoma. A total of 44 lymph nodes were harvested. There were no metastases identified. The post-operative CEA level was 4.7 ng/mL. The patient has received 10 Gy of a prescribed 50 Yancey with an intensity modulated radiotherapy plan utilizing a step and shoot treatment technique. He has been prescribed daily oral chemotherapy consisting of capecitabine (825 mg/m2 bid). Upon review of systems, he denied any gastrointestinal complaints related to radiotherapy. On physical examination, the patient weighed 233 lbs. His temperature was 97.3 ???F and the blood pressure was 163/102 mmHg. His pulse was 83 bpm and the respiratory rate was 20. There was o erythema within the treatment jara. Continue pelvic radiotherapy as prescribed. Signed by: Dr. Chi Carrasco 07/30/2021 1:36:04 PM
--- NOTE | 2021-07-31 13:50 | ONC FU_ITS ---
Alma Richards Progress Note Patient: Ryne Carrasco Unit #: [id number]: 1960 Dicatated By: Alma Richards N.P.Date of Visit:Jul 31, 2021 Onc MED Follow-up/Prog Note Chief Complaint: Colorectal cancer History of Present Illness: Mr Ryne Carrasco, is a 61-year-old gentleman status post robotic LAR for sigmoid/upper rectal adenocarcinoma on April 30, 2021. As per patient on March 10, 2021, he felt weak and tired, lethargic, went to [facility] ER in [facility], found to have severely anemic, his hemoglobin was 7.9 and also diagnosed with urine tract infection/sepsis, treated with IV antibiotics, patient responded well, he was referred to local GI physician for EGD and colonoscopy which was done in March 2021, and found to have upper rectal mass, he was referred to Dr. Wylie, patient underwent colonoscopy again on April 18, 2021, polyp from cecum was removed which was tubular adenoma and there was a upper rectal tumor, biopsy x4 were done and it shows tubular adenoma with at least high-grade dysplasia, CT scan of chest abdomen pelvis done on April 18, 2021 shows rectal mass lesion, associated with macroscopic mesorectal infiltration and multiple subcentimeter mesorectal lymph nodes, no distant metastatic disease, diffuse urinary bladder wall thickening suggestive of acute cystitis., His CEA was 20, based on clinical impression it was decided to proceed with robotic low anterior resection with en bloc resection of portion of lower anterior abdominal wall and peritoneum and excisional biopsy of edition prior to peritoneum was done on April 30, 2021. Final pathology report came back invasive moderately differentiated adenocarcinoma, tumor invades through muscularis propria into pericolorectal tissue, T3, 0 out of 44 lymph node positive for metastatic disease, no lymphovascular invasion seen, no perineural invasion seen. pT3 pN0 MX Past medical history significant for hypertension, diabetes, peripheral neuropathy, carpal tunnel syndrome, history of vocal cord warts removal, Chronic smoking, still active about pack a day, occasional alcohol use. Denies any fever chills denies any nausea or vomiting denies any diarrhea or constipation denies any melena or hematochezia but generalized weakness and fatigue.Patient was referred to [facility] for evaluation for clinical trial, as per discussion with Dr. Connelly, medical oncologist at [facility], patient would need adjuvant therapy, either with combined chemoradiation followed by FOLFOX or FOLFOX followed by short course of radiation therapy at [facility]. Patient opted for all his treatment at cancer treatment center in [place] Patient presents today for follow-up after starting Xeloda. He takes it concurrently with radiation treatments Thursday through Thursday. He states he is tolerating the medication well. Initially had some nausea but that has passed he has not had any further issues with it. He denies fever, chills, night sweats. He does have mouth ulcers on his gumline. He has not been doing the salt water and baking soda mouth rinses but states that he will start. He denies cough, shortness of breath, or chest pain. No joint pain, no dizziness, no headaches. Review Of Symptoms: See above. 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 Medications: Acetaminophen 2 Tablet (of 325 mg) Oral q 6 hours Albuterol Sulfate 1 Vial(s) (of (2.5 mg/3ml) 0.083%) Nebulization solution Inhalation four times a day PRN Capsicum (Cayenne) 2 Capsule (of 450 mg) Oral daily Cetirizine HCl 1 Tablet (of 10 mg) Oral daily Docusate Sodium 1 Capsule (of 100 mg) Oral b.i.d. PRN Lisinopril 1 Tablet (of 20 mg) Oral at bedtime Lyrica 1 Capsule (of 100 mg) Oral b.i.d. Metoprolol Succinate 0.5 Capsule (of 200 mg) Capsule ER 24 Hr Sprinkle Oral daily Ozempic (1 MG/DOSE) 1 (4 mg/3mL) Subcutaneous on Sa ProAir HFA 2 Puff(s) (of 108 (90 base) mcg/act) Aerosol, solution Inhalation PRN Protonix 1 Tablet (of 40 mg) Tablet, enteric coated Oral Rosuvastatin Calcium 1 Tablet (of 20 mg) Oral at bedtime Vitamin D2 1 Tablet (of 1.25 mg) Oral q 2 weeks Family History: There is no documented family history. Social History: Mr. Carrasco is . He is a daily smoker. He drinks daily. He has indicated exposure to the following products: cigarettes. Physical Examination: Performed on Jul 31, 2021 13:27: Height - 68.00 in, Weight - 231.6 lbs (LOW), BSA - 2.18 sq.m, BMI - 35.21 (HIGH), Temperature - 98.1 F (LOW), Pulse - 84 /min, Respiration - 16 /min, BP - 162/92 mm(hg) (HIGH), O2 Sat - 98 %, Pain - 0, and Fatigue - 8. Performance Status: 0 - Fully active, able to carry on all predisease activities without restrictions. (ECOG) Constitutional Alert, cooperative, oriented. Mood and affect appropriate. Appears close to chronological age. Well nourished. Well developed. ENMT oral ulcer to lower gum. Respiratory Lungs are clear to auscultation without rhonchi or wheezing. Cardiovascular Regular rate and rhythm of heart without murmurs, gallops or rubs. Extremities No visible deformities, no cyanosis, clubbing or edema. Pulses 3+ and equal bilaterally. Musculoskeletal No tenderness or swelling, normal range of motion without obvious weakness. Integumentary No rashes, scars, or lesions suggestive of malignancy. Psychiatric Alert and oriented times three. Coherent speech. Verbalizes understanding of our discussions today. Laboratory: Test performed on Jul 24, 2021 08:14 Sodium 135 mmol/L Potassium 3.2 mmol/L Chloride 100 mmol/L CO2 23 mmol/L Anion Gap 15.2 BUN 7 mg/dL Creatinine 0.8 mg/dL Cr Clearance (Est) 145.2000 mL/min eGFR 98.3 mL/min Glucose 174 mg/dL Osmolality - Calculated 282 mOsm/kg Calcium 9.1 mg/dL Protein, Total 6.8 g/dL Albumin 4.2 g/dL Globulin 2.6 g/dL Bilirubin, Total 0.4 mg/dL ALT (SGPT) 12 U/L AST (SGOT) 15 U/L Alkaline Phosphatase 87 IU/L WBC 7.7 10 3/uL RBC 4.82 10 6/uL HGB 12.0 g/dL HCT 38.7 % MCV 80.3 fl MCH 24.9 pg MCHC 31.0 g/dL RDW 22.5 % Platelet Count 215 10 3/cmm MPV 9.7 fL Neutrophils 4.13 10 3/uL Lymphocytes 2.9 10 3/uL Monocytes 0.5 10 3/uL Eosinophils 0.1 10 3/uL Basophils 0.0 10 3/uL Neutrophil % 53.9 % Lymphocyte % 37.5 % Monocyte % 6.4 % Eosinophil % 1.4 % Basophils % 0.5 % NRBC % 0 % CEA 3.8 ng/mL Impression: Moderately differentiated adenocarcinoma involving upper rectum/sigmoid colon per robotic LAR done on April 30, 2021 final pathology report confirmed tumor invades through muscularis propria into pericolorectal tissue, T3, 0 out of 44 lymph nodes positive for metastatic disease, N0, no lymphovascular invasion, no perineural invasion, as per discussion with Dr. Garcia, pathology tumor invades into mesorectal, more than 4 mm. And 1 and half centimeter into upper rectum. Iron deficiency anemia Hypertension Diabetes Neuropathy Carpal tunnel syndrome Plan: Patient was referred to [facility] in [place] for evaluation for clinical trial. He was evaluated by Dr. Connelly, as per discussion with her yesterday, she agreed with us regarding adjuvant therapy, patient was offered 2 options 1 would be FOLFOX biweekly x12 followed by a short course of radiation therapy at [facility] and other is a traditional combined chemoradiation with oral Xeloda followed by FOLFOX x8. Patient prefer to get all his treatment done here in [place]. Labs were discussed. WBC 6.6, hemoglobin 11.6, hematocrit 38.1, platelet 222,000. Patient presents for follow-up after starting Xeloda 1800 mg twice a day concurrently with radiation therapy. He is tolerating it well. He is experiencing some mouth sores. He was instructed to do the mouth gargles with baking soda and warm salt water 3-4 times a day. He was instructed to notify us if condition worsens. Once chemo radiation is complete patient will receive FOLFOX biweekly x8. Follow-up in 1 week with CBC and CMP. Signed By: Alma Richards N.P. <<Signature on File>>
[2021-08-06 12:41] LABS: Basophils % 0.8 %; Eosinophils # 0.2 10^3/uL (0.0-0.8); Eosinophils % 3.2 %; Hematocrit 38.7 % (42.0-52.0); Hemoglobin 12.2 g/dL (11.7-16.6); Lymphocytes # 1.7 10^3/uL (0.8-4.8); Lymphocytes % 35.7 %; Mean Corpuscular HGB Conc 31.5 g/dL (30.0-36.0); Mean Corpuscular Hemoglobin 25.8 pg (28.0-34.0); Mean Corpuscular Volume 81.8 fl (80-94); Mean Platelet Volume 9.2 fL (7.4-10.4); Monocytes # 0.4 10^3/uL (0.2-0.9); Neutrophils # 2.46 10^3/uL (1.8-7.7); Neutrophils % 51.9 %; Nucleated Red Blood Cells % 0 %; Platelet Count 161 10^3/cmm (130-400); Red Blood Count 4.73 10^6/uL (4.1-5.3); White Blood Count 4.7 10^3/uL (4.0-10.0)
[2021-08-06 13:05] LABS: Alanine Aminotransferase 12 U/L (0-41); Albumin Level 4.4 g/dL (3.5-5.2); Alkaline Phosphatase 89 IU/L (40-130); Anion Gap 13.5 (5-19); Aspartate Amino Transferase 16 U/L (0-40); Blood Urea Nitrogen 6 mg/dL (8-23); Calcium 9.4 mg/dL (8.5-10.5); Carbon Dioxide 28 mmol/L (22-29); Chloride 101 mmol/L (98-107); Globulin 3.3 g/dL (1.3-4.6); Glucose 113 mg/dL (65-115); Osmolality Calculated 286 mOsm/kg (285-295); Potassium 3.5 mmol/L (3.5-5.1); Sodium 139 mmol/L (136-145); Total Bilirubin 0.6 mg/dL (0.15-1.2); Total Protein 7.7 g/dL (6.6-8.7)
--- NOTE | 2021-08-06 13:17 | ONCRAD TMN_ITS ---
Radiation Oncology Treatment Management Note Patient Name: Ryne Carrasco Date of : 1960 Date of Service: 08/06/2021 Attending Physician: Chi Carrasco M.D. Ryne Carrasco is a 61 year old white male diagnosed with a pathological stage IIA (T3N0) rectal cancer. He was evaluated emergency department the [facility]'s Emergency Department in [place], [place] for fatigue. A hemoglobin of 8 g/dL was noted. An EGD and colonoscopy completed in March 2021 identified a rectal mass. He was referred to [facility] and evaluated by Johnnie Wylie M.D. A thoracoabdominopelvic CT scan ordered on April 18, 2021 demonstrated a rectal mass that was 7 cm from the anal verge. Mesorectal infiltration was described with subcentimeter perirectal lymphadenopathy identified. No evidence for metastatic disease was reported. A colonoscopy executed on April 18, 2021 revealed a cecal polyp, a proximal transverse colon polyp, and a large rectal mass. The rectal mass biopsy showed stromal desmoplasia suggesting an invasive component and a tubular adenoma was noted within the cecal polyp. The CEA level was 20 ng/mL. A laparoscopic robotic low anterior resection was performed on April 30, 2021. The pathology report (requested from the outside hospital and personally reviewed in [facility]) diagnosed a 6.6 cm x 4.5 cm moderately differentiated adenocarcinoma with invasion through the muscularis propria into the pericolorectal tissue. All surgical margins were negative for carcinoma. A total of 44 lymph nodes were harvested. There were no metastases identified. The post-operative CEA level was 4.7 ng/mL. The patient has received 20 Gy of a prescribed 50 Yancey with an intensity modulated radiotherapy plan utilizing a step and shoot treatment technique. He has been prescribed daily oral chemotherapy consisting of capecitabine (825 mg/m2 bid). Upon review of systems, he denied any gastrointestinal complaints related to radiotherapy. On physical examination, the patient weighed 231 lbs. His temperature was 97.8 ???F and the blood pressure was 160/96 mmHg. His pulse was 81 bpm and the respiratory rate was 19. There was no erythema within the treatment jara. Continue pelvic radiotherapy as planned. Requested evaluation by his PCP for elevated blood pressure. Signed by: Dr. Chi Carrasco 08/06/2021 1:16:26 PM
--- NOTE | 2021-08-07 13:49 | ONC FU_ITS ---
Alma Richards Progress Note Patient: Ryne Carrasco < Unit #: [id number]: 1960 Dicatated By: Alma Richards N.P.Date of Visit:Aug 07, 2021 Onc MED Follow-up/Prog Note Chief Complaint: Colorectal cancer History of Present Illness: Mr Ryne Carrasco, is a 61-year-old gentleman status post robotic LAR for sigmoid/upper rectal adenocarcinoma on April 30, 2021. As per patient on March 10, 2021, he felt weak and tired, lethargic, went to [facility] ER in [facility], found to have severely anemic, his hemoglobin was 7.9 and also diagnosed with urine tract infection/sepsis, treated with IV antibiotics, patient responded well, he was referred to local GI physician for EGD and colonoscopy which was done in March 2021, and found to have upper rectal mass, he was referred to Dr. Wylie, patient underwent colonoscopy again on April 18, 2021, polyp from cecum was removed which was tubular adenoma and there was a upper rectal tumor, biopsy x4 were done and it shows tubular adenoma with at least high-grade dysplasia, CT scan of chest abdomen pelvis done on April 18, 2021 shows rectal mass lesion, associated with macroscopic mesorectal infiltration and multiple subcentimeter mesorectal lymph nodes, no distant metastatic disease, diffuse urinary bladder wall thickening suggestive of acute cystitis., His CEA was 20, based on clinical impression it was decided to proceed with robotic low anterior resection with en bloc resection of portion of lower anterior abdominal wall and peritoneum and excisional biopsy of edition prior to peritoneum was done on April 30, 2021. Final pathology report came back invasive moderately differentiated adenocarcinoma, tumor invades through muscularis propria into pericolorectal tissue, T3, 0 out of 44 lymph node positive for metastatic disease, no lymphovascular invasion seen, no perineural invasion seen. pT3 pN0 MX Past medical history significant for hypertension, diabetes, peripheral neuropathy, carpal tunnel syndrome, history of vocal cord warts removal, Chronic smoking, still active about pack a day, occasional alcohol use. Denies any fever chills denies any nausea or vomiting denies any diarrhea or constipation denies any melena or hematochezia but generalized weakness and fatigue.Patient was referred to [facility] for evaluation for clinical trial, as per discussion with Dr. Connelly, medical oncologist at [facility], patient would need adjuvant therapy, either with combined chemoradiation followed by FOLFOX or FOLFOX followed by short course of radiation therapy at [facility]. Patient opted for all his treatment at cancer treatment center in [place] Patient presents today for follow-up after starting Xeloda. He takes it concurrently with radiation treatments Thursday through Thursday. He states he is tolerating the medication well. He denies fever, chills, night sweats. Last week he had some mouth ulcers but he has been doing the salt water and baking soda rinses and those are now healed. He denies cough, shortness of breath, or chest pain. No joint pain, no dizziness, no headaches. Review Of Symptoms: See above. 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 Medications: Acetaminophen 2 Tablet (of 325 mg) Oral q 6 hours Albuterol Sulfate 1 Vial(s) (of (2.5 mg/3ml) 0.083%) Nebulization solution Inhalation four times a day PRN Capsicum (Cayenne) 2 Capsule (of 450 mg) Oral daily Cetirizine HCl 1 Tablet (of 10 mg) Oral daily Docusate Sodium 1 Capsule (of 100 mg) Oral b.i.d. PRN Lisinopril 1 Tablet (of 40 mg) Oral at bedtime Lyrica 1 Capsule (of 100 mg) Oral b.i.d. Metoprolol Succinate 0.5 Capsule (of 200 mg) Capsule ER 24 Hr Sprinkle Oral daily Ozempic (1 MG/DOSE) 1 (4 mg/3mL) Subcutaneous on Sa ProAir HFA 2 Puff(s) (of 108 (90 base) mcg/act) Aerosol, solution Inhalation PRN Protonix 1 Tablet (of 40 mg) Tablet, enteric coated Oral Rosuvastatin Calcium 1 Tablet (of 20 mg) Oral at bedtime Vitamin D2 1 Tablet (of 1.25 mg) Oral q 2 weeks Family History: There is no documented family history. Social History: Mr. Carrasco is . He is a daily smoker. He drinks daily. He has indicated exposure to the following products: cigarettes. Physical Examination: Performed on Aug 07, 2021 09:20: Height - 68.00 in, Weight - 232.4 lbs (HIGH), BSA - 2.18 sq.m, BMI - 35.34 (HIGH), Temperature - 98.0 F (LOW), Pulse - 92 /min, Respiration - 18 /min, BP - 176/88 mm(hg) (HIGH), O2 Sat - 99 %, Pain - 0, and Fatigue - 4. Performance Status: 0 - Fully active, able to carry on all predisease activities without restrictions. (ECOG) Constitutional Alert, cooperative, oriented. Mood and affect appropriate. Appears close to chronological age. Well nourished. Well developed. Head Normocephalic; no scars. Respiratory Lungs are clear to auscultation without rhonchi or wheezing. Cardiovascular Regular rate and rhythm of heart without murmurs, gallops or rubs. Abdomen Non-tender, non-distended, no masses, ascites or hepatosplenomegaly. Good bowel sounds. No guarding or rebound tenderness. Extremities No visible deformities, no cyanosis, clubbing or edema. Pulses 3+ and equal bilaterally. Psychiatric Alert and oriented times three. Coherent speech. Verbalizes understanding of our discussions today. Laboratory: Test performed on Jul 24, 2021 08:14 Sodium 135 mmol/L Potassium 3.2 mmol/L Chloride 100 mmol/L CO2 23 mmol/L Anion Gap 15.2 BUN 7 mg/dL Creatinine 0.8 mg/dL Cr Clearance (Est) 145.2000 mL/min eGFR 98.3 mL/min Glucose 174 mg/dL Osmolality - Calculated 282 mOsm/kg Calcium 9.1 mg/dL Protein, Total 6.8 g/dL Albumin 4.2 g/dL Globulin 2.6 g/dL Bilirubin, Total 0.4 mg/dL ALT (SGPT) 12 U/L AST (SGOT) 15 U/L Alkaline Phosphatase 87 IU/L WBC 7.7 10 3/uL RBC 4.82 10 6/uL HGB 12.0 g/dL HCT 38.7 % MCV 80.3 fl MCH 24.9 pg MCHC 31.0 g/dL RDW 22.5 % Platelet Count 215 10 3/cmm MPV 9.7 fL Neutrophils 4.13 10 3/uL Lymphocytes 2.9 10 3/uL Monocytes 0.5 10 3/uL Eosinophils 0.1 10 3/uL Basophils 0.0 10 3/uL Neutrophil % 53.9 % Lymphocyte % 37.5 % Monocyte % 6.4 % Eosinophil % 1.4 % Basophils % 0.5 % NRBC % 0 % CEA 3.8 ng/mL Impression: Moderately differentiated adenocarcinoma involving upper rectum/sigmoid colon per robotic LAR done on April 30, 2021 final pathology report confirmed tumor invades through muscularis propria into pericolorectal tissue, T3, 0 out of 44 lymph nodes positive for metastatic disease, N0, no lymphovascular invasion, no perineural invasion, as per discussion with Dr. Garcia, pathology tumor invades into mesorectal, more than 4 mm. And 1 and half centimeter into upper rectum. Iron deficiency anemia Hypertension Diabetes Neuropathy Carpal tunnel syndrome Plan: Patient was referred to [facility] in [place] for evaluation for clinical trial. He was evaluated by Dr. Connelly, as per discussion with her yesterday, she agreed with us regarding adjuvant therapy, patient was offered 2 options 1 would be FOLFOX biweekly x12 followed by a short course of radiation therapy at [facility] and other is a traditional combined chemoradiation with oral Xeloda followed by FOLFOX x8. Patient prefer to get all his treatment done here in [place]. Labs were discussed. WBC is 4.7 hemoglobin 12.2, hematocrit 38.7, platelet count 161,000 neutrophil count 2.45. CMP is stable. Patient is currently taking Xeloda 1800 mg twice a day Thursday through Thursday concurrent with radiation therapy. He is tolerating the Xeloda well. Once chemo radiation is complete patient will receive FOLFOX biweekly x8. Follow-up in 1 week with CBC and CMP. Signed By: Alma Richards N.P. <<Signature on File>>
== END 2021-08-12 23:59 | disposition home or self-care (01) ==
LOC: ONCMED 07:22
PROVIDERS: Internal Medicine Hematology & Oncology; Nurse Practitioner Family; Absent Provider Radiology Radiation Oncology; PCP Nurse Practitioner Family; Visit Provider Radiology Radiation Oncology
DX: Z51.0 Encounter for antineoplastic radiation therapy (principal); C20 Malignant neoplasm of rectum; C78.5 Secondary malignant neoplasm of large intestine and rectum; D50.9 Iron deficiency anemia, unspecified; I10 Essential (primary) hypertension; E11.42 Type 2 diabetes mellitus with diabetic polyneuropathy; G56.03 Carpal tunnel syndrome, bilateral upper limbs; Z79.899 Other long term (current) drug therapy
CPT/HCPCS: 36591; 77300; 77301; 77334; 77336; 77338; 77386; 77470; 80053; 82378; 85025; 99214; Q9967

== ENCOUNTER 2021-09-12 06:36 | Outpatient (RCR) | payer MEDICARE, MEDICAID, SELFPAY ==
[2021-08-13 13:20] LABS: Basophils % 0.8 %; Eosinophils # 0.2 10^3/uL (0.0-0.8); Eosinophils % 3.5 %; Hematocrit 37.4 % (42.0-52.0); Hemoglobin 11.8 g/dL (11.7-16.6); Lymphocytes # 1.5 10^3/uL (0.8-4.8); Lymphocytes % 27.8 %; Mean Corpuscular HGB Conc 31.6 g/dL (30.0-36.0); Mean Corpuscular Hemoglobin 26.2 pg (28.0-34.0); Mean Corpuscular Volume 83.1 fl (80-94); Monocytes # 0.4 10^3/uL (0.2-0.9); Monocytes % 7.1 %; Neutrophils # 3.16 10^3/uL (1.8-7.7); Neutrophils % 60.6 %; Nucleated Red Blood Cells % 0 %; Platelet Count 139 10^3/cmm (130-400); Red Cell Distribution Width 22.7 % (12.1-15.1); White Blood Count 5.2 10^3/uL (4.0-10.0)
--- NOTE | 2021-08-13 13:36 | ONCRAD TMN_ITS ---
Radiation Oncology Treatment Management Note Patient Name: Ryne Carrasco Date of : 1960 Date of Service: 08/13/2021 Attending Physician: Chi Carrasco M.D. Ryne Carrasco is a 61 year old white male diagnosed with a pathological stage IIA (T3N0) rectal cancer. He was evaluated emergency department the [facility]'s Emergency Department in [place], [place] for fatigue. A hemoglobin of 8 g/dL was noted. An EGD and colonoscopy completed in March 2021 identified a rectal mass. He was referred to [facility] and evaluated by Johnnie Wylie M.D. A thoracoabdominopelvic CT scan ordered on April 18, 2021 demonstrated a rectal mass that was 7 cm from the anal verge. Mesorectal infiltration was described with subcentimeter perirectal lymphadenopathy identified. No evidence for metastatic disease was reported. A colonoscopy executed on April 18, 2021 revealed a cecal polyp, a proximal transverse colon polyp, and a large rectal mass. The rectal mass biopsy showed stromal desmoplasia suggesting an invasive component and a tubular adenoma was noted within the cecal polyp. The CEA level was 20 ng/mL. A laparoscopic robotic low anterior resection was performed on April 30, 2021. The pathology report (requested from the outside hospital and personally reviewed in [facility]) diagnosed a 6.6 cm x 4.5 cm moderately differentiated adenocarcinoma with invasion through the muscularis propria into the pericolorectal tissue. All surgical margins were negative for carcinoma. A total of 44 lymph nodes were harvested. There were no metastases identified. The post-operative CEA level was 4.7 ng/mL. The patient has received 28 Gy of a prescribed 50 Yancey with an intensity modulated radiotherapy plan utilizing a step and shoot treatment technique. He has been prescribed daily oral chemotherapy consisting of capecitabine (825 mg/m2 bid). Upon review of systems, he denied any gastrointestinal complaints related to radiotherapy. On physical examination, the patient weighed 230 lbs. His temperature was 97.4 ???F and the blood pressure was 147/85 mmHg. His pulse was 83 bpm and the respiratory rate was 18. There was no erythema within the treatment jara. Continue pelvic radiotherapy as prescribed. Signed by: Dr. Chi Carrasco 08/13/2021 1:35:01 PM
[2021-08-13 14:02] LABS: Alanine Aminotransferase 14 U/L (0-41); Albumin Level 4.5 g/dL (3.5-5.2); Alkaline Phosphatase 92 IU/L (40-130); Anion Gap 14.3 (5-19); Aspartate Amino Transferase 19 U/L (0-40); Blood Urea Nitrogen 6 mg/dL (8-23); Calcium 8.5 mg/dL (8.5-10.5); Carbon Dioxide 27 mmol/L (22-29); Chloride 98 mmol/L (98-107); Globulin 2.6 g/dL (1.3-4.6); Glomerular Filtration Rate 98.3 mL/min (90-130); Glucose 146 mg/dL (65-115); Osmolality Calculated 282 mOsm/kg (285-295); Potassium 3.3 mmol/L (3.5-5.1); Sodium 136 mmol/L (136-145); Total Bilirubin 0.7 mg/dL (0.15-1.2); Total Protein 7.1 g/dL (6.6-8.7)
--- NOTE | 2021-08-14 16:56 | ONC FU_ITS ---
Dr. Ramos follow up note Patient: Ryne Carrasco < Unit #: [id number]: 1960 Dicatated By: Nestor Ramos M.D.Date of Visit:Aug 14, 2021 Onc Med Follow-up/Prog Note History of Present Illness: Mr Ryne Carrasco, is a 61-year-old gentleman status post robotic LAR for sigmoid/upper rectal adenocarcinoma on April 30, 2021. As per patient on March 10, 2021, he felt weak and tired, lethargic, went to [facility] ER in [facility], found to have severely anemic, his hemoglobin was 7.9 and also diagnosed with urine tract infection/sepsis, treated with IV antibiotics, patient responded well, he was referred to local GI physician for EGD and colonoscopy which was done in March 2021, and found to have upper rectal mass, he was referred to Dr. Wylie, patient underwent colonoscopy again on April 18, 2021, polyp from cecum was removed which was tubular adenoma and there was a upper rectal tumor, biopsy x4 were done and it shows tubular adenoma with at least high-grade dysplasia, CT scan of chest abdomen pelvis done on April 18, 2021 shows rectal mass lesion, associated with macroscopic mesorectal infiltration and multiple subcentimeter mesorectal lymph nodes, no distant metastatic disease, diffuse urinary bladder wall thickening suggestive of acute cystitis., His CEA was 20, based on clinical impression it was decided to proceed with robotic low anterior resection with en bloc resection of portion of lower anterior abdominal wall and peritoneum and excisional biopsy of edition prior to peritoneum was done on April 30, 2021. Final pathology report came back invasive moderately differentiated adenocarcinoma, tumor invades through muscularis propria into pericolorectal tissue, T3, 0 out of 44 lymph node positive for metastatic disease, no lymphovascular invasion seen, no perineural invasion seen. pT3 pN0 MX Past medical history significant for hypertension, diabetes, peripheral neuropathy, carpal tunnel syndrome, history of vocal cord warts removal, Chronic smoking, still active about pack a day, occasional alcohol use. Denies any fever chills denies any nausea or vomiting denies any diarrhea or constipation denies any melena or hematochezia but generalized weakness and fatigue.Patient was referred to [facility] for evaluation for clinical trial, as per discussion with Dr. Connelly, medical oncologist at [facility], patient would need adjuvant therapy, either with combined chemoradiation followed by FOLFOX or FOLFOX followed by short course of radiation therapy at [facility]. Patient opted for all his treatment at cancer treatment center in [place] Started on Adjuvant therapy with combined chemoradiation with oral Xeloda on July 24, 2021 Came for follow-up, denies any specific complaints, no fever chills, no nausea or vomiting, no diarrhea or constipation, tolerating combined chemoradiation with oral Xeloda well, no skin rash, no hand-foot rash no mouth sores Medications: Acetaminophen 2 Tablet (of 325 mg) Oral q 6 hours, Albuterol Sulfate 1 Vial(s) (of (2.5 mg/3ml) 0.083%) Nebulization solution Inhalation four times a day PRN, Capsicum (Cayenne) 2 Capsule (of 450 mg) Oral daily, Cetirizine HCl 1 Tablet (of 10 mg) Oral daily, Docusate Sodium 1 Capsule (of 100 mg) Oral b.i.d. PRN, Lisinopril 1 Tablet (of 40 mg) Oral at bedtime, Lyrica 1 Capsule (of 100 mg) Oral b.i.d., Metoprolol Succinate 0.5 Capsule (of 200 mg) Capsule ER 24 Hr Sprinkle Oral daily, Ozempic (1 MG/DOSE) 1 (4 mg/3mL) Subcutaneous on , ProAir HFA 2 Puff(s) (of 108 (90 base) mcg/act) Aerosol, solution Inhalation PRN, Protonix 1 Tablet (of 40 mg) Tablet, enteric coated Oral, Rosuvastatin Calcium 1 Tablet (of 20 mg) Oral at bedtime, Vitamin D2 1 Tablet (of 1.25 mg) Oral q 2 weeks Allergies: No Known Allergies. Review of Systems: Review of Systems is not available for this patient. Vital Signs: Performed on Aug 14, 2021 12:16 Height - 68.00 in Weight - 233 lbs (HIGH) BSA - 2.18 sq.m BMI - 35.43 (HIGH) Temperature - 98.2 F (LOW) Pulse - 95 /min Respiration - 16 /min BP - 165/90 mm(hg) (HIGH) O2 Sat - 99 % Pain - 0 Fatigue - 5 Performance Status: 0 - Fully active, able to carry on all predisease activities without restrictions. (ECOG) Physical Examination: ENMT - No mouth sores, no thrush, no jaundice, Respiratory - Lungs are clear to auscultation, Cardiovascular - Regular rate and rhythm of heart, Abdomen - Soft, bowel sounds present, Extremities - No visible edema. Lab/Imaging: Test performed on Jul 24, 2021 08:14 Sodium 135 mmol/L Potassium 3.2 mmol/L Chloride 100 mmol/L CO2 23 mmol/L Anion Gap 15.2 BUN 7 mg/dL Creatinine 0.8 mg/dL Cr Clearance (Est) 145.2000 mL/min eGFR 98.3 mL/min Glucose 174 mg/dL Osmolality - Calculated 282 mOsm/kg Calcium 9.1 mg/dL Protein, Total 6.8 g/dL Albumin 4.2 g/dL Globulin 2.6 g/dL Bilirubin, Total 0.4 mg/dL ALT (SGPT) 12 U/L AST (SGOT) 15 U/L Alkaline Phosphatase 87 IU/L WBC 7.7 10 3/uL RBC 4.82 10 6/uL HGB 12.0 g/dL HCT 38.7 % MCV 80.3 fl MCH 24.9 pg MCHC 31.0 g/dL RDW 22.5 % Platelet Count 215 10 3/cmm MPV 9.7 fL Neutrophils 4.13 10 3/uL Lymphocytes 2.9 10 3/uL Monocytes 0.5 10 3/uL Eosinophils 0.1 10 3/uL Basophils 0.0 10 3/uL Neutrophil % 53.9 % Lymphocyte % 37.5 % Monocyte % 6.4 % Eosinophil % 1.4 % Basophils % 0.5 % NRBC % 0 % CEA 3.8 ng/mL Impression: Moderately differentiated adenocarcinoma involving upper rectum/sigmoid colon per robotic LAR done on April 30, 2021 final pathology report confirmed tumor invades through muscularis propria into pericolorectal tissue, T3, 0 out of 44 lymph nodes positive for metastatic disease, N0, no lymphovascular invasion, no perineural invasion, as per discussion with Dr. Garcia, pathology tumor invades into mesorectal, more than 4 mm. And 1 and half centimeter into upper rectum. Started on adjuvant therapy with combined chemoradiation with oral Xeloda on July 24, 2021, once completed, will consider FOLFOX x8 Iron deficiency anemia Hypertension Diabetes Neuropathy Carpal tunnel syndrome Plan: Discussed with patient regarding his labs white blood count 5.2 hemoglobin 11.8 g medical 37.4 platelets 139,000 CMP within normal limit except potassium 3.3, CEA 5.0 Clinically, patient is doing well with no new signs symptoms history of disease progression or recurrence, tolerating adjuvant therapy with combined chemoradiation with oral Xeloda well, his blood count is reasonable, will continue to with daily oral Xeloda concurrent with radiation therapy, he will return to clinic in 1 week with CBC CMP. Iron deficiency anemia, he is on oral iron, tolerating well, follow-up labs shows hemoglobin is improving, will continue with same and follow-up with his iron studies. Signed By: Nestor Ramos M.D. <<Signature on File>>
[2021-08-20 13:12] LABS: Eosinophils # 0.1 10^3/uL (0.0-0.8); Eosinophils % 3.4 %; Hematocrit 36.7 % (42.0-52.0); Lymphocytes # 1.2 10^3/uL (0.8-4.8); Lymphocytes % 29.2 %; Mean Corpuscular HGB Conc 32.7 g/dL (30.0-36.0); Mean Corpuscular Hemoglobin 27.8 pg (28.0-34.0); Mean Platelet Volume 8.9 fL (7.4-10.4); Monocytes # 0.4 10^3/uL (0.2-0.9); Monocytes % 10.1 %; Neutrophils # 2.32 10^3/uL (1.8-7.7); Neutrophils % 56.1 %; Nucleated Red Blood Cells % 0 %; Platelet Count 138 10^3/cmm (130-400); Red Blood Count 4.32 10^6/uL (4.1-5.3); Red Cell Distribution Width 24.1 % (12.1-15.1); White Blood Count 4.1 10^3/uL (4.0-10.0)
--- NOTE | 2021-08-20 13:18 | ONCRAD TMN_ITS ---
Radiation Oncology Treatment Management Note Patient Name: Ryne Carrasco Date of : 1960 Date of Service: 08/20/2021 Attending Physician: Chi Carrasco M.D. Ryne Carrasco is a 61 year old white male diagnosed with a pathological stage IIA (T3N0) rectal cancer. He was evaluated emergency department the [facility]'s Emergency Department in [place], [place] for fatigue. A hemoglobin of 8 g/dL was noted. An EGD and colonoscopy completed in March 2021 identified a rectal mass. [facility] and evaluated by Johnnie Wylie M.D. A thoracoabdominopelvic CT scan ordered on April 18, 2021 demonstrated a rectal mass that was 7 cm from the anal verge. Mesorectal infiltration was described with subcentimeter perirectal lymphadenopathy identified. No evidence for metastatic disease was reported. A colonoscopy executed on April 18, 2021 revealed a cecal polyp, a proximal transverse colon polyp, and a large rectal mass. The rectal mass biopsy showed stromal desmoplasia suggesting an invasive component and a tubular adenoma was noted within the cecal polyp. The CEA level was 20 ng/mL. A laparoscopic robotic low anterior resection was performed on April 30, 2021. The pathology report (requested from the outside hospital and personally reviewed in [facility]) diagnosed a 6.6 cm x 4.5 cm moderately differentiated adenocarcinoma with invasion through the muscularis propria into the pericolorectal tissue. All surgical margins were negative for carcinoma. A total of 44 lymph nodes were harvested. There were no metastases identified. The post-operative CEA level was 4.7 ng/mL. The patient has received 38 Gy of a prescribed 50 Yancey with an intensity modulated radiotherapy plan utilizing a step and shoot treatment technique. He has been prescribed daily oral chemotherapy consisting of capecitabine (825 mg/m2 bid). Upon review of systems, he denied any gastrointestinal complaints related to radiotherapy. On physical examination, the patient weighed 231 lbs. His temperature was 97.2 ???F and the blood pressure was 159/97 mmHg. His pulse was 80 bpm and the respiratory rate was 16. There was a grade 2 dermatitis within the gluteal cleft. Continue pelvic radiotherapy as planned. Signed by: Dr. Chi Carrasco 08/20/2021 1:17:31 PM
[2021-08-20 13:40] LABS: Alanine Aminotransferase 19 U/L (0-41); Albumin Level 4.4 g/dL (3.5-5.2); Alkaline Phosphatase 91 IU/L (40-130); Anion Gap 14.9 (5-19); Aspartate Amino Transferase 22 U/L (0-40); Blood Urea Nitrogen 7 mg/dL (8-23); Calcium 9.5 mg/dL (8.5-10.5); Carbon Dioxide 27 mmol/L (22-29); Chloride 100 mmol/L (98-107); Ferritin 83 ng/mL (30-400); Globulin 3.1 g/dL (1.3-4.6); Glomerular Filtration Rate 114.6 mL/min (90-130); Glucose 118 mg/dL (65-115); Iron 118 ug/dL (59-158); Osmolality Calculated 285 mOsm/kg (285-295); Potassium 3.9 mmol/L (3.5-5.1); Sodium 138 mmol/L (136-145); Total Bilirubin 0.7 mg/dL (0.15-1.2); Total Iron Binding Capacity 380 mcg/dl; Total Protein 7.5 g/dL (6.6-8.7); Unsaturated Iron Binding 262 ug/dL (112-347)
--- NOTE | 2021-08-21 14:44 | ONC FU_ITS ---
Alma Richards Progress Note Patient: Ryne Carrasco < Unit #: [id number]: 1960 Dicatated By: Alma Richards N.P.Date of Visit:Aug 21, 2021 Onc MED Follow-up/Prog Note Chief Complaint: Colorectal cancer History of Present Illness: Mr Ryne Carrasco, is a 61-year-old gentleman status post robotic LAR for sigmoid/upper rectal adenocarcinoma on April 30, 2021. As per patient on March 10, 2021, he felt weak and tired, lethargic, went to [facility] ER in [facility], found to have severely anemic, his hemoglobin was 7.9 and also diagnosed with urine tract infection/sepsis, treated with IV antibiotics, patient responded well, he was referred to local GI physician for EGD and colonoscopy which was done in March 2021, and found to have upper rectal mass, he was referred to Dr. Wylie, patient underwent colonoscopy again on April 18, 2021, polyp from cecum was removed which was tubular adenoma and there was a upper rectal tumor, biopsy x4 were done and it shows tubular adenoma with at least high-grade dysplasia, CT scan of chest abdomen pelvis done on April 18, 2021 shows rectal mass lesion, associated with macroscopic mesorectal infiltration and multiple subcentimeter mesorectal lymph nodes, no distant metastatic disease, diffuse urinary bladder wall thickening suggestive of acute cystitis., His CEA was 20, based on clinical impression it was decided to proceed with robotic low anterior resection with en bloc resection of portion of lower anterior abdominal wall and peritoneum and excisional biopsy of edition prior to peritoneum was done on April 30, 2021. Final pathology report came back invasive moderately differentiated adenocarcinoma, tumor invades through muscularis propria into pericolorectal tissue, T3, 0 out of 44 lymph node positive for metastatic disease, no lymphovascular invasion seen, no perineural invasion seen. pT3 pN0 MX Past medical history significant for hypertension, diabetes, peripheral neuropathy, carpal tunnel syndrome, history of vocal cord warts removal, Chronic smoking, still active about pack a day, occasional alcohol use. Denies any fever chills denies any nausea or vomiting denies any diarrhea or constipation denies any melena or hematochezia but generalized weakness and fatigue.Patient was referred to [facility] for evaluation for clinical trial, as per discussion with Dr. Connelly, medical oncologist at [place], patient would need adjuvant therapy, either with combined chemoradiation followed by FOLFOX or FOLFOX followed by short course of radiation therapy at [place]. Patient opted for all his treatment at cancer treatment center in [place] Started on Adjuvant therapy with combined chemoradiation with oral Xeloda on July 24, 2021. He is tolerating it well. He has 5 radiation treatments left and will be running out of Xeloda before the treatments are complete. Patient was instructed to finish the Xeloda that he has on hand and then his elbow will be completed. He is scheduled to start FOLFOX 2 weeks after radiation therapy has been completed. Patient is unsure if he wants to have the adjuvant chemotherapy with FOLFOX. 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 Medications: Acetaminophen 2 Tablet (of 325 mg) Oral q 6 hours Albuterol Sulfate 1 Vial(s) (of (2.5 mg/3ml) 0.083%) Nebulization solution Inhalation four times a day PRN Capsicum (Cayenne) 2 Capsule (of 450 mg) Oral daily Cetirizine HCl 1 Tablet (of 10 mg) Oral daily Docusate Sodium 1 Capsule (of 100 mg) Oral b.i.d. PRN Lisinopril 1 Tablet (of 40 mg) Oral at bedtime Lyrica 1 Capsule (of 100 mg) Oral b.i.d. Metoprolol Succinate 0.5 Capsule (of 200 mg) Capsule ER 24 Hr Sprinkle Oral daily Ozempic (1 MG/DOSE) 1 (4 mg/3mL) Subcutaneous on Sa ProAir HFA 2 Puff(s) (of 108 (90 base) mcg/act) Aerosol, solution Inhalation PRN Protonix 1 Tablet (of 40 mg) Tablet, enteric coated Oral Rosuvastatin Calcium 1 Tablet (of 20 mg) Oral at bedtime Vitamin D2 1 Tablet (of 1.25 mg) Oral q 2 weeks Family History: There is no documented family history. Social History: Mr. Carrasco is . He is a daily smoker. He drinks daily. He has indicated exposure to the following products: cigarettes. Physical Examination: Performed on Aug 21, 2021 13:57: Height - 68.00 in, Weight - 229.0 lbs (LOW), BSA - 2.16 sq.m, BMI - 34.82 (HIGH), Temperature - 98.2 F (LOW), Pulse - 85 /min, Respiration - 18 /min, BP - 158/80 mm(hg) (HIGH), O2 Sat - 97 %, Pain - 0, and Fatigue - 4. Performance Status: 0 - Fully active, able to carry on all predisease activities without restrictions. (ECOG) Constitutional Alert, cooperative, oriented. Mood and affect appropriate. Appears close to chronological age. Well nourished. Well developed. Head Normocephalic; no scars. Eyes Conjunctivae and sclerae are clear and without icterus. Pupils are reactive and equal. Respiratory Lungs are clear to auscultation without rhonchi or wheezing. Cardiovascular Regular rate and rhythm of heart without murmurs, gallops or rubs. Abdomen Non-tender, non-distended, no masses, ascites or hepatosplenomegaly. Good bowel sounds. No guarding or rebound tenderness. Back/Spine Non-tender to palpation. Extremities No visible deformities, no cyanosis, clubbing or edema. Musculoskeletal No tenderness or swelling, normal range of motion without obvious weakness. Psychiatric Alert and oriented times three. Coherent speech. Verbalizes understanding of our discussions today. Laboratory: Test performed on Jul 24, 2021 08:14 Sodium 135 mmol/L Potassium 3.2 mmol/L Chloride 100 mmol/L CO2 23 mmol/L Anion Gap 15.2 BUN 7 mg/dL Creatinine 0.8 mg/dL Cr Clearance (Est) 145.2000 mL/min eGFR 98.3 mL/min Glucose 174 mg/dL Osmolality - Calculated 282 mOsm/kg Calcium 9.1 mg/dL Protein, Total 6.8 g/dL Albumin 4.2 g/dL Globulin 2.6 g/dL Bilirubin, Total 0.4 mg/dL ALT (SGPT) 12 U/L AST (SGOT) 15 U/L Alkaline Phosphatase 87 IU/L WBC 7.7 10 3/uL RBC 4.82 10 6/uL HGB 12.0 g/dL HCT 38.7 % MCV 80.3 fl MCH 24.9 pg MCHC 31.0 g/dL RDW 22.5 % Platelet Count 215 10 3/cmm MPV 9.7 fL Neutrophils 4.13 10 3/uL Lymphocytes 2.9 10 3/uL Monocytes 0.5 10 3/uL Eosinophils 0.1 10 3/uL Basophils 0.0 10 3/uL Neutrophil % 53.9 % Lymphocyte % 37.5 % Monocyte % 6.4 % Eosinophil % 1.4 % Basophils % 0.5 % NRBC % 0 % CEA 3.8 ng/mL Impression: Moderately differentiated adenocarcinoma involving upper rectum/sigmoid colon per robotic LAR done on April 30, 2021 final pathology report confirmed tumor invades through muscularis propria into pericolorectal tissue, T3, 0 out of 44 lymph nodes positive for metastatic disease, N0, no lymphovascular invasion, no perineural invasion, as per discussion with Dr. Garcia, pathology tumor invades into mesorectal, more than 4 mm. And 1 and half centimeter into upper rectum. Started on adjuvant therapy with combined chemoradiation with oral Xeloda on July 24, 2021, once completed, will consider FOLFOX x8 Iron deficiency anemia Hypertension Diabetes Neuropathy Carpal tunnel syndrome Plan: Labs were reviewed with patient with WBC of 4.1, hemoglobin 12.0, hematocrit 36.7, and platelets at 138,000. Iron studies were performed and ferritin is 83, iron is 118, iron saturation is at 31.0. Patient is doing well he has tolerated Xeloda well. He will follow-up with Dr. Ramos in 1 week to discuss further treatment. We will also draw CBC and CMP at that time. Signed By: Alma Richards N.P. <<Signature on File>>
[2021-08-26 08:41] LABS: Basophils % 0.4 %; Eosinophils # 0.1 10^3/uL (0.0-0.8); Eosinophils % 2.3 %; Hematocrit 37.3 % (42.0-52.0); Hemoglobin 12.2 g/dL (11.7-16.6); Lymphocytes # 1.2 10^3/uL (0.8-4.8); Lymphocytes % 22.3 %; Mean Corpuscular HGB Conc 32.7 g/dL (30.0-36.0); Mean Corpuscular Hemoglobin 28.2 pg (28.0-34.0); Mean Corpuscular Volume 86.1 fl (80-94); Mean Platelet Volume 9.6 fL (7.4-10.4); Monocytes # 0.4 10^3/uL (0.2-0.9); Monocytes % 7.7 %; Neutrophils # 3.57 10^3/uL (1.8-7.7); Neutrophils % 66.9 %; Nucleated Red Blood Cells % 0 %; Platelet Count 145 10^3/cmm (130-400); Red Blood Count 4.33 10^6/uL (4.1-5.3); Red Cell Distribution Width 24.3 % (12.1-15.1); White Blood Count 5.3 10^3/uL (4.0-10.0)
[2021-08-26 08:58] LABS: Alanine Aminotransferase 22 U/L (0-41); Albumin Level 4.4 g/dL (3.5-5.2); Alkaline Phosphatase 83 IU/L (40-130); Anion Gap 13.6 (5-19); Aspartate Amino Transferase 23 U/L (0-40); Blood Urea Nitrogen 9 mg/dL (8-23); Calcium 8.6 mg/dL (8.5-10.5); Carbon Dioxide 26 mmol/L (22-29); Chloride 98 mmol/L (98-107); Globulin 2.6 g/dL (1.3-4.6); Glomerular Filtration Rate 98.3 mL/min (90-130); Glucose 151 mg/dL (65-115); Osmolality Calculated 280 mOsm/kg (285-295); Potassium 3.6 mmol/L (3.5-5.1); Sodium 134 mmol/L (136-145); Total Bilirubin 0.7 mg/dL (0.15-1.2)
--- NOTE | 2021-08-26 16:18 | ONC FU_ITS ---
Dr. Ramos follow up note Patient: Ryne Carrasco Unit #: [id number]: 1960 Dicatated By: Nestor Ramos M.D.Date of Visit:Aug 26, 2021 Onc Med Follow-up/Prog Note History of Present Illness: Mr Ryne Carrasco, is a 61-year-old gentleman status post robotic LAR for sigmoid/upper rectal adenocarcinoma on April 30, 2021. As per patient on March 10, 2021, he felt weak and tired, lethargic, went to [facility] ER in [facility], found to have severely anemic, his hemoglobin was 7.9 and also diagnosed with urine tract infection/sepsis, treated with IV antibiotics, patient responded well, he was referred to local GI physician for EGD and colonoscopy which was done in March 2021, and found to have upper rectal mass, he was referred to Dr. Wylie, patient underwent colonoscopy again on April 18, 2021, polyp from cecum was removed which was tubular adenoma and there was a upper rectal tumor, biopsy x4 were done and it shows tubular adenoma with at least high-grade dysplasia, CT scan of chest abdomen pelvis done on April 18, 2021 shows rectal mass lesion, associated with macroscopic mesorectal infiltration and multiple subcentimeter mesorectal lymph nodes, no distant metastatic disease, diffuse urinary bladder wall thickening suggestive of acute cystitis., His CEA was 20, based on clinical impression it was decided to proceed with robotic low anterior resection with en bloc resection of portion of lower anterior abdominal wall and peritoneum and excisional biopsy of edition prior to peritoneum was done on April 30, 2021. Final pathology report came back invasive moderately differentiated adenocarcinoma, tumor invades through muscularis propria into pericolorectal tissue, T3, 0 out of 44 lymph node positive for metastatic disease, no lymphovascular invasion seen, no perineural invasion seen. pT3 pN0 MX Past medical history significant for hypertension, diabetes, peripheral neuropathy, carpal tunnel syndrome, history of vocal cord warts removal, Chronic smoking, still active about pack a day, occasional alcohol use. Denies any fever chills denies any nausea or vomiting denies any diarrhea or constipation denies any melena or hematochezia but generalized weakness and fatigue.Patient was referred to [facility] for evaluation for clinical trial, as per discussion with Dr. Connelly, medical oncologist at [place], patient would need adjuvant therapy, either with combined chemoradiation followed by FOLFOX or FOLFOX followed by short course of radiation therapy at [place]. Patient opted for all his treatment at cancer treatment center in [place] Started on Adjuvant therapy with combined chemoradiation with oral Xeloda on July 24, 2021. He is tolerating it well. He has 5 radiation treatments left and will be running out of Xeloda before the treatments are complete. Patient was instructed to finish the Xeloda that he has on hand and then his elbow will be completed. He is scheduled to start FOLFOX 2 weeks after radiation therapy has been completed. Patient is unsure if he wants to have the adjuvant chemotherapy with FOLFOX. Came for follow-up, denies any specific complaints, no fever chills, no nausea or vomiting, no diarrhea constipation, Denies any hand-foot rash or skin rash or mouth sores,tolerating combined chemoradiation with oral Xeloda well and patient will conclude combined chemoradiation on coming Thursday. Medications: Acetaminophen 2 Tablet (of 325 mg) Oral q 6 hours, Albuterol Sulfate 1 Vial(s) (of (2.5 mg/3ml) 0.083%) Nebulization solution Inhalation four times a day PRN, Capsicum (Cayenne) 2 Capsule (of 450 mg) Oral daily, Cetirizine HCl 1 Tablet (of 10 mg) Oral daily, Docusate Sodium 1 Capsule (of 100 mg) Oral b.i.d. PRN, Lisinopril 1 Tablet (of 40 mg) Oral at bedtime, Lyrica 1 Capsule (of 100 mg) Oral b.i.d., Metoprolol Succinate 0.5 Capsule (of 200 mg) Capsule ER 24 Hr Sprinkle Oral daily, Ozempic (1 MG/DOSE) 1 (4 mg/3mL) Subcutaneous on Sa, ProAir HFA 2 Puff(s) (of 108 (90 base) mcg/act) Aerosol, solution Inhalation PRN, Protonix 1 Tablet (of 40 mg) Tablet, enteric coated Oral, Rosuvastatin Calcium 1 Tablet (of 20 mg) Oral at bedtime, Vitamin D2 1 Tablet (of 1.25 mg) Oral q 2 weeks Allergies: No Known Allergies. Review of Systems: Review of Systems is not available for this patient. Vital Signs: Performed on Aug 26, 2021 09:56 Height - 68.00 in Weight - 228.4 lbs (LOW) BSA - 2.16 sq.m BMI - 34.73 (HIGH) Temperature - 97.8 F (LOW) Pulse - 92 /min Respiration - 18 /min BP - 115/73 mm(hg) O2 Sat - 97 % Pain - 0 Fatigue - 5 Performance Status: 0 - Fully active, able to carry on all predisease activities without restrictions. (ECOG) Physical Examination: ENMT - No mouth sores, no thrush, no jaundice, Respiratory - Lungs are clear to auscultation, Cardiovascular - Regular rate and rhythm of heart, With systolic murmur, Abdomen - Soft, bowel sounds present, Extremities - No visible edema. Lab/Imaging: Test performed on Jul 24, 2021 08:14 Sodium 135 mmol/L Potassium 3.2 mmol/L Chloride 100 mmol/L CO2 23 mmol/L Anion Gap 15.2 BUN 7 mg/dL Creatinine 0.8 mg/dL Cr Clearance (Est) 145.2000 mL/min eGFR 98.3 mL/min Glucose 174 mg/dL Osmolality - Calculated 282 mOsm/kg Calcium 9.1 mg/dL Protein, Total 6.8 g/dL Albumin 4.2 g/dL Globulin 2.6 g/dL Bilirubin, Total 0.4 mg/dL ALT (SGPT) 12 U/L AST (SGOT) 15 U/L Alkaline Phosphatase 87 IU/L WBC 7.7 10 3/uL RBC 4.82 10 6/uL HGB 12.0 g/dL HCT 38.7 % MCV 80.3 fl MCH 24.9 pg MCHC 31.0 g/dL RDW 22.5 % Platelet Count 215 10 3/cmm MPV 9.7 fL Neutrophils 4.13 10 3/uL Lymphocytes 2.9 10 3/uL Monocytes 0.5 10 3/uL Eosinophils 0.1 10 3/uL Basophils 0.0 10 3/uL Neutrophil % 53.9 % Lymphocyte % 37.5 % Monocyte % 6.4 % Eosinophil % 1.4 % Basophils % 0.5 % NRBC % 0 % CEA 3.8 ng/mL Impression: Moderately differentiated adenocarcinoma involving upper rectum/sigmoid colon per robotic LAR done on April 30, 2021 final pathology report confirmed tumor invades through muscularis propria into pericolorectal tissue, T3, 0 out of 44 lymph nodes positive for metastatic disease, N0, no lymphovascular invasion, no perineural invasion, as per discussion with Dr. Garcia, pathology tumor invades into mesorectal, more than 4 mm. And 1 and half centimeter into upper rectum. Started on adjuvant therapy with combined chemoradiation with oral Xeloda on July 24, 2021, once completed, will consider FOLFOX x8 Iron deficiency anemia Hypertension Diabetes Neuropathy Carpal tunnel syndrome Plan: Discussed with patient regarding his labs white blood count 5.3 hemoglobin 12 point tubular hematocrit 37.3 platelets 145,000 CMP within normal limits Clinically, patient doing well with no new signs symptoms, tolerating combined chemoradiation with oral Xeloda well, patient will complete his scheduled combined chemoradiation on coming Thursday and subsequently will be started on adjuvant systemic therapy with FOLFOX but patient and his are somewhat reluctant to consider systemic therapy with FOLFOX, as per patient and again his they have done some research on [employer] and now reconsidering adjuvant therapy with FOLFOX, patient was advised to consider adjuvant therapy with FOLFOX, all the side effect possible benefits were discussed again, patient was advised to take second opinion if he wishes otherwise return to clinic in 2 weeks with CBC CMP and at that time, patient will let me know whether he wants to pursue adjuvant therapy with FOLFOX or CAPOX. Signed By: Nestor Ramos M.D. <<Signature on File>>
--- NOTE | 2021-08-27 13:30 | ONCRAD TMN_ITS ---
Radiation Oncology Weekly Treatment Management Patient: Danilo Chris MR#: [id number] : 1960> Attending Physician: Dr. Huseyin Coughlin Date of Service: 08/27/2021 Referring Physician(s) : Nestor Ramos Diagnosis: C19 - Malignant neoplasm of rectosigmoid junction, Diagnosed 06/11/2021 (Active) Radiotherapy to date: Course: Rectal Ca, Treatment Site: Rectal Ca ??? Adjuvant, Ref. ID: [id number], Energy: 15X, Dose/Fx (cGy): 200, #Fx: 24 / 25, Dose Correction (cGy): 0, Total Dose (cGy): 4,800, Start Date: 07/24/2021, Elapsed Days: 34 Reason for visit: The patient is being seen today as part of their regularly scheduled weekly on treatment visits to assess for acute toxicities from radiotherapy. Review of Systems: Mr. Carrasco finishes treatment tomorrow. He has no bowel or bladder complaints. He has a skin reaction that is not troublesome to him. He is applying aloe vera. Normal appetite and energy level. On concomitant Xeloda. Vital Signs: Performed on 08/27/2021 1:18 PM BMI - 34.972 kg/m2 (high), Height - 68 in, Weight - 230 lbs, Temperature - 96.5 f, Pulse - 78 /min, Respiration - 20 /min, O2 Sat - 96 %, Pain - 0, Fatigue - 5 and BP - 132/ 82 mm(hg). Physical Exam: Alert, oriented, no acute distress. He has hyperpigmentation and dry desquamation over the lower pelvic area. In the intergluteal fold he has early moist desquamation. No evidence of infection. Imaging: Radiation therapy imaging related to accurate target localization (i.e. KV, MV and CBCT) was reviewed. Appropriate changes, if any, were made to ensure treatment accuracy. Plan: Continue treatment per plan. He will finish tomorrow. He will need follow-up with medical oncology to discuss of the Xeloda schedule. I discussed that his skin reaction may take longer to resolve because of the Xeloda. He will continue aloe vera applications, which seem to be working well. Signed by: Dr. Huseyin Coughlin 08/27/2021 1:28:58 PM
--- NOTE | 2021-08-28 17:10 | N.ONRD TS_ITS ---
Radiation Oncology Treatment Summary Patient: Danilo>Aries MR#: [id number] : 1960> Age: 61> Sex: Male Dictated by: Dr. Huseyin Coughlin Date of Service: 08/28/2021 Referring Physician(s) : Nestor Ramos M.D. Diagnosis: C19 - Malignant neoplasm of rectosigmoid junction, Diagnosed 06/11/2021 (Active) Radiotherapy to Date: Course: Rectal Ca, Treatment Site: Rectal Ca ??? Adjuvant, Ref. ID: [id number], Energy: 15X, Dose/Fx (cGy): 200, #Fx: 25 / 25, Dose Correction (cGy): 0, Total Dose (cGy): 5,000, Start Date: 07/24/2021, End Date: 08/28/2021, Elapsed Days: 35 Clinical Summary: The patient tolerated RT well. At the completion of therapy he had no complaints. Bowel and bladder function were normal. He did have a noticeable skin reaction. Over the anterior aspect of the pelvis he had hyperpigmentation dry desquamation, and moderate erythema. In the intergluteal fold he had early patchy moist desquamation. He was applying aloe vera gel to all of these areas with good results. He denied any pain or discomfort in the intergluteal fold area. I discussed appropriate hygiene measures for the area and the continued application of aloe vera gel. He was told to call the radiation center if he has any worsening problems or questions. Plan: End of treatment today. Continue on the aloe vera gel until the skin reaction resolves. Follow up in one month. Signed by: Dr. Huseyin Coughlin>08/28/2021 5:07:48 PM <<Signature on File>>
[2021-09-12 09:50] LABS: Basophils # 0.1 10^3/uL (0.0-0.1); Eosinophils # 0.2 10^3/uL (0.0-0.8); Eosinophils % 2.8 %; Hematocrit 41.2 % (42.0-52.0); Hemoglobin 13.9 g/dL (11.7-16.6); Lymphocytes # 1.4 10^3/uL (0.8-4.8); Lymphocytes % 24.4 %; Mean Corpuscular HGB Conc 33.7 g/dL (30.0-36.0); Mean Corpuscular Hemoglobin 30.9 pg (28.0-34.0); Mean Corpuscular Volume 91.6 fl (80-94); Mean Platelet Volume 9.5 fL (7.4-10.4); Monocytes # 0.5 10^3/uL (0.2-0.9); Monocytes % 8.7 %; Neutrophils % 62.8 %; Nucleated Red Blood Cells % 0 %; Platelet Count 144 10^3/cmm (130-400); Red Cell Distribution Width 22.9 % (12.1-15.1); White Blood Count 5.7 10^3/uL (4.0-10.0)
[2021-09-12 10:27] LABS: Alanine Aminotransferase 46 U/L (0-41); Albumin Level 4.5 g/dL (3.5-5.2); Alkaline Phosphatase 76 IU/L (40-130); Anion Gap 15.8 (5-19); Aspartate Amino Transferase 39 U/L (0-40); Blood Urea Nitrogen 7 mg/dL (8-23); Calcium 9.5 mg/dL (8.5-10.5); Carbon Dioxide 25 mmol/L (22-29); Chloride 99 mmol/L (98-107); Globulin 2.5 g/dL (1.3-4.6); Glomerular Filtration Rate 114.6 mL/min (90-130); Glucose 132 mg/dL (65-115); Osmolality Calculated 282 mOsm/kg (285-295); Potassium 3.8 mmol/L (3.5-5.1); Sodium 136 mmol/L (136-145); Total Bilirubin 0.6 mg/dL (0.15-1.2)
--- NOTE | 2021-09-13 12:15 | ONC FU_ITS ---
Dr. Ramos follow up note Patient: Ryne Carrasco Unit #: [id number]: 1960 Dicatated By: Nestor Ramos M.D.Date of Visit:Sep 12, 2021 Onc Med Follow-up/Prog Note History of Present Illness: Mr Ryne Carrasco, is a 61-year-old gentleman status post robotic LAR for sigmoid/upper rectal adenocarcinoma on April 30, 2021. As per patient on March 10, 2021, he felt weak and tired, lethargic, went to [facility] ER in [facility], found to have severely anemic, his hemoglobin was 7.9 and also diagnosed with urine tract infection/sepsis, treated with IV antibiotics, patient responded well, he was referred to local GI physician for EGD and colonoscopy which was done in March 2021, and found to have upper rectal mass, he was referred to Dr. Wylie, patient underwent colonoscopy again on April 18, 2021, polyp from cecum was removed which was tubular adenoma and there was a upper rectal tumor, biopsy x4 were done and it shows tubular adenoma with at least high-grade dysplasia, CT scan of chest abdomen pelvis done on April 18, 2021 shows rectal mass lesion, associated with macroscopic mesorectal infiltration and multiple subcentimeter mesorectal lymph nodes, no distant metastatic disease, diffuse urinary bladder wall thickening suggestive of acute cystitis., His CEA was 20, based on clinical impression it was decided to proceed with robotic low anterior resection with en bloc resection of portion of lower anterior abdominal wall and peritoneum and excisional biopsy of edition prior to peritoneum was done on April 30, 2021. Final pathology report came back invasive moderately differentiated adenocarcinoma, tumor invades through muscularis propria into pericolorectal tissue, T3, 0 out of 44 lymph node positive for metastatic disease, no lymphovascular invasion seen, no perineural invasion seen. pT3 pN0 MX Past medical history significant for hypertension, diabetes, peripheral neuropathy, carpal tunnel syndrome, history of vocal cord warts removal, Chronic smoking, still active about pack a day, occasional alcohol use. Denies any fever chills denies any nausea or vomiting denies any diarrhea or constipation denies any melena or hematochezia but generalized weakness and fatigue.Patient was referred to [facility] for evaluation for clinical trial, as per discussion with Dr. Connelly, medical oncologist at [place], patient would need adjuvant therapy, either with combined chemoradiation followed by FOLFOX or FOLFOX followed by short course of radiation therapy at [place]. Patient opted for all his treatment at cancer treatment center in [place] Started on Adjuvant therapy with combined chemoradiation with oral Xeloda on July 24, 2021. Patient completed combined chemoradiation with oral Xeloda and was recommended to proceed with FOLFOX every 2 weeks x8 but patient decided against it, as per patient his younger cousin was diagnosed with same condition and underwent surgery and followed by chemo but she while on chemotherapy so he and his did some research and now have decided against adjuvant chemotherapy and rather prefer observation knowing the risk versus benefit associated with adjuvant FOLFOX. Came for follow-up, denies any specific complaints, no fever chills, no nausea or vomiting, no diarrhea constipation patient has completed combined chemoradiation with oral Xeloda well, now denies any abdominal pain, no new bony pains, no dysuria or hematuria. Patient is here to discuss about further adjuvant chemotherapy with FOLFOX Medications: Acetaminophen 2 Tablet (of 325 mg) Oral q 6 hours, Albuterol Sulfate 1 Vial(s) (of (2.5 mg/3ml) 0.083%) Nebulization solution Inhalation four times a day PRN, Capsicum (Cayenne) 2 Capsule (of 450 mg) Oral daily, Cetirizine HCl 1 Tablet (of 10 mg) Oral daily, Docusate Sodium 1 Capsule (of 100 mg) Oral b.i.d. PRN, Lisinopril 1 Tablet (of 40 mg) Oral at bedtime, Lyrica 1 Capsule (of 100 mg) Oral b.i.d., Metoprolol Succinate 0.5 Capsule (of 200 mg) Capsule ER 24 Hr Sprinkle Oral daily, Ozempic (1 MG/DOSE) 1 (4 mg/3mL) Subcutaneous on , ProAir HFA 2 Puff(s) (of 108 (90 base) mcg/act) Aerosol, solution Inhalation PRN, Protonix 1 Tablet (of 40 mg) Tablet, enteric coated Oral, Rosuvastatin Calcium 1 Tablet (of 20 mg) Oral at bedtime, Vitamin D2 1 Tablet (of 1.25 mg) Oral q 2 weeks Allergies: No Known Allergies. Review of Systems: Review of Systems is not available for this patient. Vital Signs: Performed on Sep 12, 2021 15:05 Height - 68.00 in Weight - 228.4 lbs (LOW) BSA - 2.16 sq.m BMI - 34.73 (HIGH) Temperature - 97.6 F (LOW) Pulse - 86 /min Respiration - 18 /min BP - 149/83 mm(hg) (HIGH) O2 Sat - 97 % Pain - 0 Fatigue - 6 Performance Status: 0 - Fully active, able to carry on all predisease activities without restrictions. (ECOG) Physical Examination: ENMT - No mouth sores, no thrush, no jaundice, Respiratory - Lungs are clear to auscultation, Cardiovascular - Regular rate and rhythm of heart, Abdomen - Soft, bowel sounds present, Extremities - No visible edema. Lab/Imaging: Test performed on Jul 24, 2021 08:14 Sodium 135 mmol/L Potassium 3.2 mmol/L Chloride 100 mmol/L CO2 23 mmol/L Anion Gap 15.2 BUN 7 mg/dL Creatinine 0.8 mg/dL Cr Clearance (Est) 145.2000 mL/min eGFR 98.3 mL/min Glucose 174 mg/dL Osmolality - Calculated 282 mOsm/kg Calcium 9.1 mg/dL Protein, Total 6.8 g/dL Albumin 4.2 g/dL Globulin 2.6 g/dL Bilirubin, Total 0.4 mg/dL ALT (SGPT) 12 U/L AST (SGOT) 15 U/L Alkaline Phosphatase 87 IU/L WBC 7.7 10 3/uL RBC 4.82 10 6/uL HGB 12.0 g/dL HCT 38.7 % MCV 80.3 fl MCH 24.9 pg MCHC 31.0 g/dL RDW 22.5 % Platelet Count 215 10 3/cmm MPV 9.7 fL Neutrophils 4.13 10 3/uL Lymphocytes 2.9 10 3/uL Monocytes 0.5 10 3/uL Eosinophils 0.1 10 3/uL Basophils 0.0 10 3/uL Neutrophil % 53.9 % Lymphocyte % 37.5 % Monocyte % 6.4 % Eosinophil % 1.4 % Basophils % 0.5 % NRBC % 0 % CEA 3.8 ng/mL Impression: Moderately differentiated adenocarcinoma involving upper rectum/sigmoid colon per robotic LAR done on April 30, 2021 final pathology report confirmed tumor invades through muscularis propria into pericolorectal tissue, T3, 0 out of 44 lymph nodes positive for metastatic disease, N0, no lymphovascular invasion, no perineural invasion, as per discussion with Dr. Garcia, pathology tumor invades into mesorectal, more than 4 mm. And 1 and half centimeter into upper rectum. Started on adjuvant therapy with combined chemoradiation with oral Xeloda on July 24, 2021, once completed, will consider FOLFOX x8 Iron deficiency anemia Hypertension Diabetes Neuropathy Carpal tunnel syndrome Plan: Discussed with patient regarding his labs white blood count 5.7 hemoglobin 13.9 hematocrit 41.2 platelets 144,000 CMP within normal limits Clinically, patient doing well with no new signs symptoms history of recurrence of disease, patient has completed combined chemoradiation with oral Xeloda now switching to FOLFOX every 2 weeks x8 is recommended and under consideration but patient and his have decided against it, knowing the risk versus benefits, as per patient, his younger cousin who used to live in [place] was diagnosed with a similar condition and underwent surgery and was undergoing systemic therapy and she while undergoing chemotherapy so he and his have decided not to consider further chemotherapy knowing the risk versus benefit associated with FOLFOX. Patient was advised to think over, patient was also advised to seek a second or third opinion as patient has been evaluated at [place] and he was recommended adjuvant combined chemoradiation with Xeloda followed by FOLFOX every 2 weeks x8. But patient is adamant about not considering chemotherapy at this point rather observation. Patient was advised to think over in the meantime we will continue monthly port maintenance and he will return to clinic in 1 month for further discussion. Patient is also scheduled to see radiation oncology for follow-up. Signed By: Nestor Ramos M.D. <<Signature on File>>
== END 2021-09-12 23:59 | disposition home or self-care (01) ==
LOC: ONCMED 06:36
PROVIDERS: Absent Provider Radiology Radiation Oncology; PCP Nurse Practitioner Family; Visit Provider Internal Medicine Hematology & Oncology
DX: Z51.0 Encounter for antineoplastic radiation therapy (principal); C19 Malignant neoplasm of rectosigmoid junction; D50.9 Iron deficiency anemia, unspecified; I10 Essential (primary) hypertension; E11.42 Type 2 diabetes mellitus with diabetic polyneuropathy; G56.03 Carpal tunnel syndrome, bilateral upper limbs; Z79.899 Other long term (current) drug therapy
CPT/HCPCS: 36415; 77336; 77385; 77386; 80053; 82378; 82728; 83540; 83550; 85025; 99214; 99215

== ENCOUNTER → 2021-10-01 09:07 | Outpatient (BNVA) | payer MEDICARE, MEDICAID, SELFPAY | PROVIDERS: PCP Nurse Practitioner Family; Visit Provider Internal Medicine Cardiovascular Disease | DX: I48.21 Permanent atrial fibrillation (principal); R07.89 Other chest pain; I10 Essential (primary) hypertension; Z87.891 Personal history of nicotine dependence | CPT/HCPCS: 99214; 99215 ==

== ENCOUNTER 2021-10-09 06:41 | Outpatient (RCR) | payer MEDICARE, MEDICAID, SELFPAY ==
--- NOTE | 2021-10-04 08:23 | ONCRAD EPV_ITS ---
Radiation Oncology Follow-Up Note Patient Name: Ryne Carrasco Date of : 1960 Date of Service: 10/04/2021 Attending Physician: Chi Carrasco M.D. Ryne Carrasco returned to my office this morning for a routinely scheduled follow-up appointment. He completed pelvic radiotherapy in August for the management pathological stage IIA (T3N0) rectal cancer. He was evaluated at the [facility] Emergency Department in [place], [place] for fatigue. A hemoglobin of 8 g/dL was noted. An EGD and colonoscopy completed in March 2021 identified a rectal mass. He was referred to [facility] and evaluated by Johnnie Wylie M.D. A thoracoabdominopelvic CT scan ordered on April 18, 2021 demonstrated a rectal mass that was 7 cm from the anal verge. Mesorectal infiltration was described with subcentimeter perirectal lymphadenopathy identified. No evidence for metastatic disease was reported. A colonoscopy executed on April 18, 2021 revealed a cecal polyp, a proximal transverse colon polyp, and a large rectal mass. The rectal mass biopsy showed stromal desmoplasia suggesting an invasive component and a tubular adenoma was noted within the cecal polyp. The CEA level was 20 ng/mL. A laparoscopic robotic low anterior resection was performed on April 30, 2021. The pathology report (requested from the outside hospital and personally reviewed in [facility]) diagnosed a 6.6 cm x 4.5 cm moderately differentiated adenocarcinoma with invasion through the muscularis propria into the pericolorectal tissue. All surgical margins were negative for carcinoma. A total of 44 lymph nodes were harvested. There were no metastases identified. The post-operative CEA level was 4.7 ng/mL. Pelvic radiation therapy was delivered between the dates of July 24, 2021 through August 28, 2021. A prescribed dose of 50 Gy was delivered in 25 fractions encompassing 36 elapsed days. He was prescribed daily oral chemotherapy consisting of Capecitabine (825 mg/m2) during radiotherapy under the supervision of Nestor Ramos M.D. On review of systems, the patient denied any gastrointestinal complaints related to treatment. On physical examination, the patient weighed 228 pounds. The temperature was 97.9 ???F and the blood pressure was 157/97 mmHg. The pulse was 75 bpm and respiratory rate was 16 breaths per minute. Rectal exam was deferred. In summary, Mr. Michele returned for a routine post-radiotherapy follow-up. There is no sequelae from treatment. Adjuvant chemotherapy (FOLFOX) has been recommended. He will continue follow-up with medical oncology. Signed by: Chi Carrasco 10/04/2021 9:20:46 AM
--- NOTE | 2021-10-13 17:30 | ONC FU_ITS ---
Dr. Ramos follow up note Patient: Ryne Carrasco Unit #: [id number]: 1960 Dicatated By: Nestor Ramos M.D.Date of Visit:Oct 09, 2021 Onc Med Follow-up/Prog Note History of Present Illness: Mr Ryne Carrasco, is a 61-year-old gentleman status post robotic LAR for sigmoid/upper rectal adenocarcinoma on April 30, 2021. As per patient on March 10, 2021, he felt weak and tired, lethargic, went to [facility] ER in [facility], found to have severely anemic, his hemoglobin was 7.9 and also diagnosed with urine tract infection/sepsis, treated with IV antibiotics, patient responded well, he was referred to local GI physician for EGD and colonoscopy which was done in March 2021, and found to have upper rectal mass, he was referred to Dr. Wylie, patient underwent colonoscopy again on April 18, 2021, polyp from cecum was removed which was tubular adenoma and there was a upper rectal tumor, biopsy x4 were done and it shows tubular adenoma with at least high-grade dysplasia, CT scan of chest abdomen pelvis done on April 18, 2021 shows rectal mass lesion, associated with macroscopic mesorectal infiltration and multiple subcentimeter mesorectal lymph nodes, no distant metastatic disease, diffuse urinary bladder wall thickening suggestive of acute cystitis., His CEA was 20, based on clinical impression it was decided to proceed with robotic low anterior resection with en bloc resection of portion of lower anterior abdominal wall and peritoneum and excisional biopsy of edition prior to peritoneum was done on April 30, 2021. Final pathology report came back invasive moderately differentiated adenocarcinoma, tumor invades through muscularis propria into pericolorectal tissue, T3, 0 out of 44 lymph node positive for metastatic disease, no lymphovascular invasion seen, no perineural invasion seen. pT3 pN0 MX Past medical history significant for hypertension, diabetes, peripheral neuropathy, carpal tunnel syndrome, history of vocal cord warts removal, Chronic smoking, still active about pack a day, occasional alcohol use. Denies any fever chills denies any nausea or vomiting denies any diarrhea or constipation denies any melena or hematochezia but generalized weakness and fatigue.Patient was referred to [facility] for evaluation for clinical trial, as per discussion with Dr. Connelly, medical oncologist at [place], patient would need adjuvant therapy, either with combined chemoradiation followed by FOLFOX or FOLFOX followed by short course of radiation therapy at [place]. Patient opted for all his treatment at cancer treatment center in [place] Started on Adjuvant therapy with combined chemoradiation with oral Xeloda on July 24, 2021. Patient completed combined chemoradiation with oral Xeloda and was recommended to proceed with FOLFOX every 2 weeks x8 but patient decided against it, as per patient his younger cousin was diagnosed with same condition and underwent surgery and followed by chemo but she while on chemotherapy so he and his did some research and now have decided against adjuvant chemotherapy and rather prefer observation knowing the risk versus benefit associated with adjuvant FOLFOX. Came for follow-up, denies any specific complaints resolved feeling much better, more energetic since he is off chemoradiation. Denies any fever chills denies any nausea vomiting denies any diarrhea constipation denies any peripheral neuropathy denies any melena or hematochezia or jaundice, appetite is good Medications: Acetaminophen 2 Tablet (of 325 mg) Oral q 6 hours, Albuterol Sulfate 1 Vial(s) (of (2.5 mg/3ml) 0.083%) Nebulization solution Inhalation four times a day PRN, Capsicum (Cayenne) 2 Capsule (of 450 mg) Oral daily, Cetirizine HCl 1 Tablet (of 10 mg) Oral daily, Docusate Sodium 1 Capsule (of 100 mg) Oral b.i.d. PRN, Lisinopril 1 Tablet (of 40 mg) Oral at bedtime, Lyrica 1 Capsule (of 100 mg) Oral b.i.d., Metoprolol Succinate 0.5 Capsule (of 200 mg) Capsule ER 24 Hr Sprinkle Oral daily, Ozempic (1 MG/DOSE) 1 (4 mg/3mL) Subcutaneous on Sa, ProAir HFA 2 Puff(s) (of 108 (90 base) mcg/act) Aerosol, solution Inhalation PRN, Protonix 1 Tablet (of 40 mg) Tablet, enteric coated Oral, Rosuvastatin Calcium 1 Tablet (of 20 mg) Oral at bedtime, Vitamin D2 1 Tablet (of 1.25 mg) Oral q 2 weeks Allergies: No Known Allergies. Review of Systems: Review of Systems is not available for this patient. Vital Signs: Performed on Oct 09, 2021 14:06 Height - 68.00 in Weight - 229 lbs (HIGH) BSA - 2.16 sq.m BMI - 34.82 (HIGH) Temperature - 97.5 F (LOW) Pulse - 82 /min Respiration - 20 /min BP - 171/93 mm(hg) (HIGH) O2 Sat - 98 % Pain - 0 Fatigue - 0 Performance Status: 0 - Fully active, able to carry on all predisease activities without restrictions. (ECOG) Physical Examination: ENMT - No mouth sores, no thrush, no jaundice, Respiratory - Poor air entry otherwise clear, Cardiovascular - Regular rate and rhythm of heart, Abdomen - Soft, bowel sounds present, Extremities - No visible edema. Lab/Imaging: Test performed on Jul 24, 2021 08:14 Sodium 135 mmol/L Potassium 3.2 mmol/L Chloride 100 mmol/L CO2 23 mmol/L Anion Gap 15.2 BUN 7 mg/dL Creatinine 0.8 mg/dL Cr Clearance (Est) 145.2000 mL/min eGFR 98.3 mL/min Glucose 174 mg/dL Osmolality - Calculated 282 mOsm/kg Calcium 9.1 mg/dL Protein, Total 6.8 g/dL Albumin 4.2 g/dL Globulin 2.6 g/dL Bilirubin, Total 0.4 mg/dL ALT (SGPT) 12 U/L AST (SGOT) 15 U/L Alkaline Phosphatase 87 IU/L WBC 7.7 10 3/uL RBC 4.82 10 6/uL HGB 12.0 g/dL HCT 38.7 % MCV 80.3 fl MCH 24.9 pg MCHC 31.0 g/dL RDW 22.5 % Platelet Count 215 10 3/cmm MPV 9.7 fL Neutrophils 4.13 10 3/uL Lymphocytes 2.9 10 3/uL Monocytes 0.5 10 3/uL Eosinophils 0.1 10 3/uL Basophils 0.0 10 3/uL Neutrophil % 53.9 % Lymphocyte % 37.5 % Monocyte % 6.4 % Eosinophil % 1.4 % Basophils % 0.5 % NRBC % 0 % CEA 3.8 ng/mL Impression: Moderately differentiated adenocarcinoma involving upper rectum/sigmoid colon per robotic LAR done on April 30, 2021 final pathology report confirmed tumor invades through muscularis propria into pericolorectal tissue, T3, 0 out of 44 lymph nodes positive for metastatic disease, N0, no lymphovascular invasion, no perineural invasion, as per discussion with Dr. Garcia, pathology tumor invades into mesorectal, more than 4 mm. And 1 and half centimeter into upper rectum. Started on adjuvant therapy with combined chemoradiation with oral Xeloda on July 24, 2021, Followed by FOLFOX x8, Patient completed combined chemoradiation but declined Treatment with FOLFOX AGAINST MEDICAL ADVICE Iron deficiency anemia Hypertension Diabetes Neuropathy Carpal tunnel syndrome Plan: Discussed with patient regarding role of adjuvant systemic therapy with FOLFOX again, patient said he has decided not to consider FOLFOX, knowing the risk versus benefits and also declined second opinion, so at patient's request, we will monitor him with physical exam and lab work-up He will return to clinic in 1 month with CBC CMP and CEA in the meantime continue monthly port maintenance Patient was advised to quit smoking and was offered any assistance he may need Signed By: Nestor Ramos M.D. <<Signature on File>>
== END 2021-10-12 23:59 | disposition home or self-care (01) ==
LOC: ONCMED 06:41
PROVIDERS: PCP Nurse Practitioner Family; Visit Provider Internal Medicine Hematology & Oncology
DX: C20 Malignant neoplasm of rectum (principal); C78.5 Secondary malignant neoplasm of large intestine and rectum; F17.210 Nicotine dependence, cigarettes, uncomplicated; Z79.899 Other long term (current) drug therapy; Z45.2 Encounter for adjustment and management of vascular access device
CPT/HCPCS: 96523; 99215

== ENCOUNTER 2021-10-15 06:55 | Outpatient (CLI) | payer MEDICARE, MEDICAID, SELFPAY ==
--- NOTE | 2021-10-15 07:00 | USCV_ITS ---
CarrascoRyne woodall Age: 61 Gender: M : 1960 Exam Date: 10/15/2021 07:08 Ordering Phys: Edmond Molina MD ([email or web address]) Technologist: Daniel Gallagher Exam Location: [facility] [place] Indication: cad BP: 151 / 89 HR: 80 Rhythm: Sinus Technical Quality: Adequate MEASUREMENTS (Male / Female) Normal Values 2D ECHO LV Diastolic Diameter PLAX 4.0 cm 4.2 - 5.9 / 3.9 - 5.3 cm LV Systolic Diameter PLAX 3.2 cm IVS Diastolic Thickness 0.9 cm 0.6 - 1.0 / 0.6 - 0.9 cm IVS Systolic Thickness 1.4 cm LVPW Diastolic Thickness 1.1 cm 0.6 - 1.0 / 0.6 - 0.9 cm LVPW Systolic Thickness 1.4 cm LVOT Diameter 2.1 cm LV Ejection Fraction 2D Teich 16.6 % LV Ejection Fraction MOD 2C 59.6 % LV Ejection Fraction 2C AL 58.9 % LA Diameter 3.4 cm Aorta at Sinotubular Diameter 2.5 cm M-MODE Aortic Annulus Diameter 3.9 cm LA Ao Ratio MM 0.9 MV E Point Septal Separation 1.4 cm DOPPLER AV Peak Velocity 105.0 cm/s LVOT Peak Velocity 84.0 cm/s AV Area Cont Eq vti 2.9 cm squared AV Area Cont Eq pk 2.7 cm squared MV Area PHT 5.0 cm squared Mitral E to A Ratio 0.9 MV E' Velocity 39.5 cm/s Mitral E to MV E' Ratio 8.2 Mitral E to LV E' Lateral Ratio 7.8 Mitral E to LV E' Septal Ratio 8.9 TR Peak Velocity 175.0 cm/s TR Peak Gradient 12.3 mmHg TV Peak E Velocity 80.0 cm/s Right Atrial Pressure 3.0 mmHg Pulmonary Artery Systolic Pressu 15.3 mmHg PV Peak Velocity 87.0 cm/s FINDINGS Left Ventricle Normal left ventricular size and systolic function, EF 58 %. Mild left ventricular hypertrophy. No regional wall motion abnormalities. Grade I/IV diastolic dysfunction (abnormal relaxation filling pattern), normal to mildly elevated filling pressures. Right Ventricle The right ventricle is normal in size and function. Right Atrium The right atrium is normal in size. Left Atrium The left atrium is normal in size. Mitral Valve No gross abnormalities noted Aortic Valve Thickened aortic valve. Tricuspid Valve No gross abnormalities noted Pulmonic Valve No gross abnormalities noted Pericardium Normal pericardium without effusion. Aorta Normal ascending aorta dimension. CONCLUSIONS Normal left ventricular size and systolic function, EF 58 %. Mild left ventricular hypertrophy. No regional wall motion abnormalities. Grade I/IV diastolic dysfunction (abnormal relaxation filling pattern), normal to mildly elevated filling pressures. Thickened aortic valve. No significant stenotic or regurgitant lesions. Normal cardiac chamber sizes. There is no pericardial effusion. There are no intracardiac masses. No similar previous study is available for comparison. Dr Edmond Molina MD [facility] (Electronically Signed) Final Date: 15 Oct 2021 16:10 S
== END 2021-10-15 06:56 | disposition home or self-care (01) ==
LOC: RAD 06:57
PROVIDERS: PCP Nurse Practitioner Family; Visit Provider Internal Medicine Cardiovascular Disease
DX: R06.00 Dyspnea, unspecified (principal)
CPT/HCPCS: 93306

== ENCOUNTER 2021-11-06 11:15 | Oncology outpatient (recurring) (ONCR) | payer MEDICARE, MEDICAID, SELFPAY ==
[2021-11-06 11:25] LABS: Basophils # 0.1 10^3/uL (0.0-0.1); Basophils % 0.9 %; Eosinophils # 0.2 10^3/uL (0.0-0.8); Eosinophils % 2.2 %; Hematocrit 41.4 % (42.0-52.0); Hemoglobin 14.8 g/dL (11.7-16.6); Lymphocytes # 1.6 10^3/uL (0.8-4.8); Lymphocytes % 24.4 %; Mean Corpuscular HGB Conc 35.7 g/dL (30.0-36.0); Mean Corpuscular Hemoglobin 32.8 pg (28.0-34.0); Mean Corpuscular Volume 91.8 fl (80-94); Mean Platelet Volume 9.7 fL (7.4-10.4); Monocytes # 0.5 10^3/uL (0.2-0.9); Monocytes % 7.8 %; Neutrophils # 4.28 10^3/uL (1.8-7.7); Neutrophils % 64.3 %; Nucleated Red Blood Cells % 0 %; Platelet Count 173 10^3/cmm (130-400); Red Blood Count 4.51 10^6/uL (4.1-5.3); Red Cell Distribution Width 14.6 % (12.1-15.1); White Blood Count 6.7 10^3/uL (4.0-10.0)
[2021-11-06 12:06] LABS: Carcinoembryonic Antigen 4.7 ng/mL (0.0-4.7)
[2021-11-06 12:17] LABS: Alanine Aminotransferase 47 U/L (0-41); Albumin Level 4.4 g/dL (3.5-5.2); Alkaline Phosphatase 76 IU/L (40-130); Anion Gap 16.7 (5-19); Aspartate Amino Transferase 52 U/L (0-40); Blood Urea Nitrogen 11 mg/dL (8-23); Calcium 9.4 mg/dL (8.5-10.5); Carbon Dioxide 25 mmol/L (22-29); Chloride 99 mmol/L (98-107); Globulin 2.5 g/dL (1.3-4.6); Glucose 154 mg/dL (65-115); Osmolality Calculated 286 mOsm/kg (285-295); Potassium 3.7 mmol/L (3.5-5.1); Sodium 137 mmol/L (136-145); Total Bilirubin 0.7 mg/dL (0.15-1.2); Total Protein 6.9 g/dL (6.6-8.7)
[2021-11-06 12:26] LABS: Creatinine Clr Calc Pharmacy 151.0312
== END 2021-11-12 23:59 | disposition home or self-care (01) ==
PROVIDERS: PCP Nurse Practitioner Family; Visit Provider Internal Medicine Hematology & Oncology
DX: C20 Malignant neoplasm of rectum (principal); I48.21 Permanent atrial fibrillation; E21.3 Hyperparathyroidism, unspecified; R74.01 Elevation of levels of liver transaminase levels; Z79.899 Other long term (current) drug therapy; Z92.21 Personal history of antineoplastic chemotherapy; Z92.3 Personal history of irradiation; Z53.9 Procedure and treatment not carried out, unspecified reason
CPT/HCPCS: 36591; 80053; 82378; 85025; 99214; 99999

== ENCOUNTER 2021-12-09 07:24 | Outpatient (CLI) | payer MEDICARE, MEDICAID, SELFPAY ==
[2021-12-09 08:33] VITALS: BMI 35.1
--- NOTE | 2021-12-09 08:34 | ECG_ITS ---
[facility] Test Date: 2021-12-09 Pat Name: Ryne Carrasco Department: Room: Gender: Male Project Scheduler: : 1960 Requested By: Edmond Molina Order Number: [id number] Jaqueline MD: Edmond Molina M.D. Interpretive Statements NAME OF STUDY: LEXISCAN SESTAMIBI STRESS TEST INDICATION: Chest Pain PROCEDURE: At the baseline, the EKG revealed normal sinus rhythm with some nonspecific T wave changes.. The baseline blood pressure was 149/81 mm Hg with a heart rate of 66 beats/min. Lexiscan was infused over a period of 20 seconds. A total of 0.4 milligrams of Lexiscan was infused. The stress phase was continued for a total of 5 minutes. Heart rate at the end of the stress phase was 88 with a blood pressure 170/78. The EKG at the peak infusion revealed no significant changes. Sestamibi was injected 20 seconds after the Lexiscan infusion. Blood pressure at the end of the recovery phase was 153/79 with a heart rate of 80 per minute. CONCLUSION: 1. No significant EKG changes with the LexiScan infusion 2. No LexiScan induced chest pain or cardiac arrhythmia 3. Normal blood pressure and heart rate response 4. Sestamibi/sestamibi perfusion scan pending; see separate report. Electronically Signed On 12-10-2021 19:45:38 CDT by Edmond Molina M.D. [email or web address]
--- NOTE | 2021-12-09 08:35 | NMCV_ITS ---
NM ambrosio perf SPECT r/s* [id number] Ryne Carrasco Age: 61 Gender: M : 1960 Exam Date: 12/09/2021 08:35 Ordering Phys: Edmond Molina MD ([email or web address]) Technologist: TEJA Chapa Exam Location: [facility] Indications: SHORTNESS OF BREATH STRESS TEST Please [facility] IMAGE PROTOCOL Rest/Stress 1 Lexiscan Day Radiopharmaceutical Dose (mCi) Administration Site Administered by Rest: Tc-99m 10.9 IV TEJA Lopez Sestamibi Stress:Tc-99m 33.0 IV TEJA Chapa Sestamibean Rest: 09-Dec-2021 60 Discovery 630 Stress: 09-Dec-2021 30 Discovery 630 0.4mg Lexiscan. Images obtained in supine and prone position. SPECT RESULTS Technical Quality: Excellent Raw Data Analysis: Normal Image Corrections: No attenuation or motion correction applied Summed Stress Score: 4 Summed Rest Score: 7 Summed Difference Score: 1 PERFUSION FINDINGS A small area of moderately decreased tracer uptake in the mid and apical inferior wall regions. Subtle area of reversibility was noted in the apical inferior region, with respect to the supine imaging. No significant reversibility was noted with respect to the prone imaging. FUNCTIONAL RESULTS (calculated via Gated SPECT) Stress Image LV EF (%): 61 Stress EDV (mL):131 TID: 1.11 Stress ESV (mL):51 FUNCTIONAL FINDINGS: Segmental wall motion analysis revealing no gross wall motion normalities. IMPRESSIONS 1. Myocardial perfusion imaging revealing small area of moderately decreased tracer uptake in the inferior and LV apex with a subtle area of reversibility in the apical inferior region, suggestive of ischemia in the distribution of the right coronary artery. However because the inconsistency with the prone imaging, the reliability is questionable. 2. Normal LV ejection fraction of 61%. 3. LV wall motion analysis revealing no gross wall motion normalities. 4. Mildly dilated LV cavity with an end-systolic volume of 51ml. No similar previous studies are available for comparison Dr Edmond Molina MD [facility] (Electronically Signed) Final Date: 09 December 2021 19:38 S
[2021-12-09] MEDS: regadenoson 0.4 Mg/5 ml Syringe IVP (09:29)
[2021-12-09 10:05] VITALS: BP 153/79; PULSE 80
== END 2021-12-09 07:25 | disposition home or self-care (01) ==
LOC: CDL 07:26
PROVIDERS: PCP Nurse Practitioner Family; Visit Provider Internal Medicine Cardiovascular Disease
DX: R06.02 Shortness of breath (principal)
CPT/HCPCS: 78452; 93017; A9500; J2785

== ENCOUNTER 2021-12-13 07:40 | Oncology outpatient (recurring) (ONCR) | payer MEDICARE, MEDICAID, SELFPAY ==
[2021-12-13 08:19] LABS: Alanine Aminotransferase 26 U/L (0-41); Albumin Level 4.2 g/dL (3.5-5.2); Alkaline Phosphatase 73 IU/L (40-130); Anion Gap 15.2 (5-19); Aspartate Amino Transferase 27 U/L (0-40); Blood Urea Nitrogen 11 mg/dL (8-23); Calcium 8.9 mg/dL (8.5-10.5); Carbon Dioxide 23 mmol/L (22-29); Chloride 99 mmol/L (98-107); Glomerular Filtration Rate 114.6 mL/min (90-130); Glucose 181 mg/dL (65-115); Osmolality Calculated 282 mOsm/kg (285-295); Potassium 3.2 mmol/L (3.5-5.1); Sodium 134 mmol/L (136-145); Total Bilirubin 0.7 mg/dL (0.15-1.2); Total Protein 7.2 g/dL (6.6-8.7)
== END 2022-01-12 23:59 | disposition home or self-care (01) ==
PROVIDERS: PCP Nurse Practitioner Family; Visit Provider Internal Medicine Hematology & Oncology
DX: C20 Malignant neoplasm of rectum (principal); I48.21 Permanent atrial fibrillation; Z79.01 Long term (current) use of anticoagulants; E21.3 Hyperparathyroidism, unspecified; E87.6 Hypokalemia; Z95.828 Presence of other vascular implants and grafts
CPT/HCPCS: 36415; 80053; 99214

== ENCOUNTER → 2022-01-01 10:18 | Outpatient (BNVA) | payer MEDICARE, MEDICAID, SELFPAY | PROVIDERS: PCP Registered Nurse; Visit Provider Internal Medicine Cardiovascular Disease | DX: I10 Essential (primary) hypertension (principal); R07.89 Other chest pain; I48.21 Permanent atrial fibrillation; J44.9 Chronic obstructive pulmonary disease, unspecified; E11.9 Type 2 diabetes mellitus without complications; F17.210 Nicotine dependence, cigarettes, uncomplicated; Z79.84 Long term (current) use of oral hypoglycemic drugs | CPT/HCPCS: 99214 ==

== ENCOUNTER 2022-01-15 10:25 | Oncology outpatient (recurring) (ONCR) | payer MEDICARE, MEDICAID, SELFPAY | END 2022-02-12 23:59 | disposition home or self-care (01) | PROVIDERS: PCP Registered Nurse; Visit Provider Internal Medicine Hematology & Oncology | DX: C20 Malignant neoplasm of rectum (principal) | CPT/HCPCS: 36591 ==

== ENCOUNTER → 2022-03-17 09:44 | Outpatient (BNVA) | payer MEDICARE, MEDICAID, SELFPAY | PROVIDERS: PCP Registered Nurse; Visit Provider Internal Medicine | DX: E11.9 Type 2 diabetes mellitus without complications (principal); E53.8 Deficiency of other specified B group vitamins; R07.89 Other chest pain; E21.3 Hyperparathyroidism, unspecified; R13.10 Dysphagia, unspecified; Z85.048 Personal history of other malignant neoplasm of rectum, rectosigmoid junction, and anus; F17.210 Nicotine dependence, cigarettes, uncomplicated; Z79.899 Other long term (current) drug therapy | CPT/HCPCS: 80053; 80061; 82607; 82746; 83036; 99213 ==

== ENCOUNTER 2022-03-21 07:35 | Oncology outpatient (recurring) (ONCR) | payer MEDICARE, MEDICAID, SELFPAY ==
[2022-03-21 08:14] VITALS: BMI 35.3
[2022-03-21 08:24] LABS: Basophils % 0.8 %; Eosinophils # 0.1 10^3/uL (0.0-0.8); Eosinophils % 2.3 %; Hematocrit 39.5 % (42.0-52.0); Hemoglobin 14.2 g/dL (11.7-16.6); Lymphocytes # 1.2 10^3/uL (0.8-4.8); Lymphocytes % 21.9 %; Mean Corpuscular HGB Conc 35.9 g/dL (30.0-36.0); Mean Corpuscular Hemoglobin 34.8 pg (28.0-34.0); Mean Corpuscular Volume 96.8 fl (80-94); Mean Platelet Volume 9.4 fL (7.4-10.4); Monocytes # 0.4 10^3/uL (0.2-0.9); Monocytes % 7.2 %; Neutrophils # 3.58 10^3/uL (1.8-7.7); Neutrophils % 67.6 %; Nucleated Red Blood Cells % 0 %; Platelet Count 182 10^3/cmm (130-400); Red Blood Count 4.08 10^6/uL (4.1-5.3); Red Cell Distribution Width 12.1 % (12.1-15.1); White Blood Count 5.3 10^3/uL (4.0-10.0)
[2022-03-21 09:06] LABS: Alanine Aminotransferase 34 U/L (0-41); Albumin Level 3.9 g/dL (3.5-5.2); Alkaline Phosphatase 97 U/L (40-130); Anion Gap 14.8 (5-19); Aspartate Amino Transferase 32 U/L (0-40); Blood Urea Nitrogen 12 mg/dL (8-23); Calcium 8.8 mg/dL (8.5-10.5); Carbon Dioxide 29 mmol/L (22-29); Chloride 101 mmol/L (98-107); Globulin 3.1 g/dL (1.3-4.6); Glucose 321 mg/dL (65-115); Osmolality Calculated 302 mOsm/kg (285-295); Potassium 4.8 mmol/L (3.5-5.1); Sodium 140 mmol/L (136-145); Total Bilirubin 0.6 mg/dL (0.15-1.2)
[2022-03-21 09:36] LABS: Carcinoembryonic Antigen 5.9 ng/mL (0.0-4.7)
== END 2022-04-14 23:59 | disposition home or self-care (01) ==
PROVIDERS: PCP Registered Nurse; Visit Provider Internal Medicine Hematology & Oncology
DX: F17.210 Nicotine dependence, cigarettes, uncomplicated; Z08 Encounter for follow-up examination after completed treatment for malignant neoplasm; Z85.048 Personal history of other malignant neoplasm of rectum, rectosigmoid junction, and anus; Z90.49 Acquired absence of other specified parts of digestive tract
CPT/HCPCS: 36591; 80053; 82378; 85025; 99213; 99214

== ENCOUNTER 2022-04-23 09:26 | Oncology outpatient (recurring) (ONCR) | payer MEDICARE, MEDICAID, SELFPAY ==
[2022-04-23 10:27] LABS: Carcinoembryonic Antigen 6.2 ng/mL (0.0-4.7)
== END 2022-05-14 23:59 | disposition home or self-care (01) ==
PROVIDERS: PCP Registered Nurse; Visit Provider Internal Medicine Hematology & Oncology
DX: Z08 Encounter for follow-up examination after completed treatment for malignant neoplasm (principal); Z85.048 Personal history of other malignant neoplasm of rectum, rectosigmoid junction, and anus; Z90.49 Acquired absence of other specified parts of digestive tract; R97.0 Elevated carcinoembryonic antigen [CEA]; F17.210 Nicotine dependence, cigarettes, uncomplicated; Z92.21 Personal history of antineoplastic chemotherapy; Z92.3 Personal history of irradiation
CPT/HCPCS: 36591; 82378; 99214

== ENCOUNTER → 2022-05-05 14:51 | Outpatient (BNVA) | payer MEDICARE, MEDICAID, SELFPAY | PROVIDERS: PCP Registered Nurse; Visit Provider Surgery | DX: C20 Malignant neoplasm of rectum (principal) | CPT/HCPCS: 99203 ==

== ENCOUNTER 2022-06-03 11:47 | Oncology outpatient (recurring) (ONCR) | payer MEDICARE, MEDICAID, SELFPAY | END 2022-06-14 23:59 | disposition home or self-care (01) | PROVIDERS: PCP Registered Nurse; Visit Provider Internal Medicine Hematology & Oncology | DX: Z08 Encounter for follow-up examination after completed treatment for malignant neoplasm (principal); Z85.038 Personal history of other malignant neoplasm of large intestine; K52.89 Other specified noninfective gastroenteritis and colitis; R97.0 Elevated carcinoembryonic antigen [CEA]; F17.210 Nicotine dependence, cigarettes, uncomplicated; Z92.21 Personal history of antineoplastic chemotherapy; Z92.3 Personal history of irradiation; Z95.828 Presence of other vascular implants and grafts | CPT/HCPCS: 96523; 99214 ==

== ENCOUNTER → 2022-07-02 12:48 | Outpatient (BNVA) | payer MEDICARE, MEDICAID, SELFPAY | PROVIDERS: PCP Registered Nurse; Visit Provider Nurse Practitioner Family | DX: I10 Essential (primary) hypertension (principal); I48.21 Permanent atrial fibrillation; F17.210 Nicotine dependence, cigarettes, uncomplicated; Z79.01 Long term (current) use of anticoagulants | CPT/HCPCS: 99214 ==

== ENCOUNTER 2022-07-07 13:08 | Oncology outpatient (recurring) (ONCR) | payer MEDICARE, MEDICAID, SELFPAY ==
[2022-07-07 13:18] VITALS: BP 131/73; PULSE 84; RESP 16; TEMP 36.2; O2SAT 97
== END 2022-07-15 23:59 | disposition home or self-care (01) ==
PROVIDERS: PCP Registered Nurse; Visit Provider Internal Medicine Hematology & Oncology
DX: Z45.2 Encounter for adjustment and management of vascular access device (principal); Z95.828 Presence of other vascular implants and grafts
CPT/HCPCS: 96523

== ENCOUNTER 2022-08-07 13:04 | Oncology outpatient (recurring) (ONCR) | payer MEDICARE, MEDICAID, SELFPAY ==
[2022-08-07 13:18] VITALS: BP 130/82; PULSE 86; RESP 18; TEMP 36.3; O2SAT 95
== END 2022-08-12 23:59 | disposition home or self-care (01) ==
LOC: ONCMED 13:05
PROVIDERS: PCP Registered Nurse; Visit Provider Internal Medicine Hematology & Oncology
DX: Z45.2 Encounter for adjustment and management of vascular access device (principal)
CPT/HCPCS: 96523

== ENCOUNTER 2022-09-03 11:02 | Oncology outpatient (recurring) (ONCR) | payer MEDICARE, MEDICAID, SELFPAY ==
[2022-09-03 12:22] VITALS: BP 130/76; PULSE 76; RESP 18; TEMP 36.7; O2SAT 95
[2022-09-03 12:33] LABS: Basophils % 0.5 %; Eosinophils # 0.2 10^3/uL (0.0-0.8); Eosinophils % 2.6 %; Hematocrit 43.1 % (42.0-52.0); Hemoglobin 14.8 g/dL (11.7-16.6); Lymphocytes # 1.7 10^3/uL (0.8-4.8); Lymphocytes % 28.3 %; Mean Corpuscular HGB Conc 34.3 g/dL (30.0-36.0); Mean Corpuscular Hemoglobin 31.9 pg (28.0-34.0); Mean Corpuscular Volume 92.9 fl (80-94); Mean Platelet Volume 9.2 fL (7.4-10.4); Monocytes # 0.5 10^3/uL (0.2-0.9); Monocytes % 7.4 %; Neutrophils # 3.73 10^3/uL (1.8-7.7); Neutrophils % 60.9 %; Nucleated Red Blood Cells % 0 %; Platelet Count 189 10^3/cmm (130-400); Red Blood Count 4.64 10^6/uL (4.1-5.3); Red Cell Distribution Width 11.9 % (12.1-15.1); White Blood Count 6.1 10^3/uL (4.0-10.0)
[2022-09-03 13:00] LABS: Carcinoembryonic Antigen 4.2 ng/mL (0.0-4.7)
[2022-09-03 13:11] LABS: Alanine Aminotransferase 38 U/L (0-41); Alkaline Phosphatase 81 U/L (40-130); Anion Gap 14.7 (5-19); Aspartate Amino Transferase 42 U/L (0-40); Blood Urea Nitrogen 8 mg/dL (8-23); Calcium 9.4 mg/dL (8.5-10.5); Carbon Dioxide 26 mmol/L (22-29); Chloride 99 mmol/L (98-107); Globulin 2.9 g/dL (1.3-4.6); Glomerular Filtration Rate 136.5 mL/min (90-130); Glucose 114 mg/dL (65-115); Osmolality Calculated 281 mOsm/kg (285-295); Potassium 3.7 mmol/L (3.5-5.1); Sodium 136 mmol/L (136-145); Total Bilirubin 0.4 mg/dL (0.15-1.2); Total Protein 6.9 g/dL (6.6-8.7)
[2022-09-03 13:25] LABS: Creatinine Clr Calc Pharmacy 148.7915
== END 2022-09-12 23:59 | disposition home or self-care (01) ==
PROVIDERS: PCP Registered Nurse; Visit Provider Internal Medicine Hematology & Oncology
DX: Z08 Encounter for follow-up examination after completed treatment for malignant neoplasm (principal); Z85.048 Personal history of other malignant neoplasm of rectum, rectosigmoid junction, and anus; D64.9 Anemia, unspecified; I48.21 Permanent atrial fibrillation; E21.3 Hyperparathyroidism, unspecified; F17.210 Nicotine dependence, cigarettes, uncomplicated; Z79.01 Long term (current) use of anticoagulants; Z79.899 Other long term (current) drug therapy; Z92.21 Personal history of antineoplastic chemotherapy; Z92.3 Personal history of irradiation
CPT/HCPCS: 36591; 80053; 82378; 85025; 99214

== ENCOUNTER 2022-10-03 08:57 | Oncology outpatient (recurring) (ONCR) | payer MEDICARE, MEDICAID, SELFPAY ==
[2022-10-03 11:35] VITALS: BP 125/76; PULSE 70; TEMP 36.7; O2SAT 95
== END 2022-10-12 23:59 | disposition home or self-care (01) ==
LOC: ONCMED 08:57
PROVIDERS: PCP Registered Nurse; Visit Provider Internal Medicine Hematology & Oncology
DX: Z45.2 Encounter for adjustment and management of vascular access device
CPT/HCPCS: 96523

== ENCOUNTER 2022-11-03 12:36 | Oncology outpatient (recurring) (ONCR) | payer MEDICARE, MEDICAID, SELFPAY ==
[2022-11-03 12:57] VITALS: BP 137/83; PULSE 85; RESP 18; TEMP 36.2; O2SAT 96
== END 2022-11-12 23:59 | disposition home or self-care (01) ==
PROVIDERS: PCP Registered Nurse; Visit Provider Internal Medicine Hematology & Oncology
DX: Z45.2 Encounter for adjustment and management of vascular access device (principal)
CPT/HCPCS: 96523; J1642

== ENCOUNTER 2022-12-08 11:12 | Oncology outpatient (recurring) (ONCR) | payer MEDICARE, MEDICAID, SELFPAY ==
[2022-12-08 11:28] VITALS: BP 144/86; PULSE 83; RESP 18; TEMP 36.5; O2SAT 95
[2022-12-08 11:48] LABS: Basophils # 0.1 10^3/uL (0.0-0.1); Basophils % 0.7 %; Eosinophils # 0.1 10^3/uL (0.0-0.8); Eosinophils % 1.4 %; Hematocrit 45.1 % (42.0-52.0); Hemoglobin 15.9 g/dL (11.7-16.6); Lymphocytes # 2.2 10^3/uL (0.8-4.8); Lymphocytes % 25.4 %; Mean Corpuscular HGB Conc 35.3 g/dL (30.0-36.0); Mean Corpuscular Hemoglobin 33.6 pg (28.0-34.0); Mean Corpuscular Volume 95.3 fl (80-94); Mean Platelet Volume 9.4 fL (7.4-10.4); Monocytes # 0.6 10^3/uL (0.2-0.9); Neutrophils # 5.58 10^3/uL (1.8-7.7); Neutrophils % 65.1 %; Nucleated Red Blood Cells % 0 %; Platelet Count 188 10^3/cmm (130-400); Red Blood Count 4.73 10^6/uL (4.1-5.3); Red Cell Distribution Width 12.5 % (12.1-15.1); White Blood Count 8.6 10^3/uL (4.0-10.0)
[2022-12-08 12:10] LABS: Carcinoembryonic Antigen 4.3 ng/mL (0.0-4.7)
[2022-12-08 12:23] LABS: Alanine Aminotransferase 21 U/L (0-41); Albumin Level 4.4 g/dL (3.5-5.2); Alkaline Phosphatase 97 U/L (40-130); Anion Gap 14.9 (5-19); Aspartate Amino Transferase 24 U/L (0-40); Blood Urea Nitrogen 8 mg/dL (8-23); Carbon Dioxide 26 mmol/L (22-29); Chloride 101 mmol/L (98-107); Globulin 2.9 g/dL (1.3-4.6); Glomerular Filtration Rate 114.3 mL/min (90-130); Glucose 111 mg/dL (65-115); Osmolality Calculated 285 mOsm/kg (285-295); Potassium 3.9 mmol/L (3.5-5.1); Sodium 138 mmol/L (136-145); Total Bilirubin 0.6 mg/dL (0.15-1.2); Total Protein 7.3 g/dL (6.6-8.7)
== END 2022-12-12 23:59 | disposition home or self-care (01) ==
PROVIDERS: PCP Registered Nurse; Visit Provider Internal Medicine Hematology & Oncology
DX: Z08 Encounter for follow-up examination after completed treatment for malignant neoplasm (principal); Z85.048 Personal history of other malignant neoplasm of rectum, rectosigmoid junction, and anus; Z92.21 Personal history of antineoplastic chemotherapy; Z92.3 Personal history of irradiation; F17.210 Nicotine dependence, cigarettes, uncomplicated
CPT/HCPCS: 36591; 80053; 82378; 85025; 99214; J1642

== ENCOUNTER 2022-12-29 08:43 | Oncology outpatient (recurring) (ONCR) | payer MEDICARE, MEDICAID, SELFPAY ==
[2022-12-29 08:51] VITALS: BP 125/74; PULSE 80; RESP 18; TEMP 36.7; O2SAT 94
== END 2023-01-12 23:59 | disposition home or self-care (01) ==
PROVIDERS: PCP Registered Nurse; Visit Provider Internal Medicine Hematology & Oncology
DX: Z08 Encounter for follow-up examination after completed treatment for malignant neoplasm (principal); Z85.048 Personal history of other malignant neoplasm of rectum, rectosigmoid junction, and anus; D64.9 Anemia, unspecified; I48.21 Permanent atrial fibrillation; E21.3 Hyperparathyroidism, unspecified; F17.210 Nicotine dependence, cigarettes, uncomplicated; Z79.01 Long term (current) use of anticoagulants; Z79.899 Other long term (current) drug therapy; Z92.21 Personal history of antineoplastic chemotherapy; Z92.3 Personal history of irradiation
CPT/HCPCS: 96523; J1642

== ENCOUNTER → 2023-01-07 15:23 | Outpatient (BNVA) | payer MEDICARE, MEDICAID, SELFPAY | PROVIDERS: PCP Registered Nurse; Visit Provider Internal Medicine Cardiovascular Disease | DX: I48.21 Permanent atrial fibrillation (principal); I10 Essential (primary) hypertension; E11.9 Type 2 diabetes mellitus without complications; J44.9 Chronic obstructive pulmonary disease, unspecified; F17.210 Nicotine dependence, cigarettes, uncomplicated; Z79.01 Long term (current) use of anticoagulants; Z79.84 Long term (current) use of oral hypoglycemic drugs | CPT/HCPCS: 99214 ==

== ENCOUNTER 2023-02-06 08:31 | Outpatient (CLI) | payer MEDICARE, MEDICAID, SELFPAY ==
--- NOTE | 2023-02-06 09:03 | ECG_ITS ---
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 Measurements Intervals [place] Rate: 62 P: 72 WY: 206 QRS: 56 QRSD: 118 T: 67 QT: 419 QTc: 429 Interpretive Statements SINUS RHYTHM Compared to ECG 05/16/2019 09:16:51 Myocardial infarct finding no longer present Electronically Signed On 02-06-2023 18:20:45 CDT by Edmond Molina M.D. [email or web address]
== END 2023-02-06 08:32 | disposition home or self-care (01) ==
PROVIDERS: PCP Registered Nurse; Visit Provider Specialist
DX: Z01.810 Encounter for preprocedural cardiovascular examination (principal); D38.0 Neoplasm of uncertain behavior of larynx
CPT/HCPCS: 93005

== ENCOUNTER 2023-02-06 09:28 | Oncology outpatient (recurring) (ONCR) | payer MEDICARE, MEDICAID, SELFPAY ==
[2023-02-02 09:48] VITALS: BP 114/73; PULSE 64; RESP 17; TEMP 37; O2SAT 93
[2023-02-06 10:25] LABS: Basophils # 0.1 10^3/uL (0.0-0.1); Basophils % 0.8 %; Eosinophils # 0.1 10^3/uL (0.0-0.8); Eosinophils % 1.7 %; Hematocrit 43.1 % (37-53); Lymphocytes # 1.8 10^3/uL (0.8-4.8); Lymphocytes % 28.9 %; Mean Corpuscular HGB Conc 34.8 g/dL (30-55); Mean Corpuscular Hemoglobin 32.5 pg (27-33); Mean Corpuscular Volume 93.5 fl (82-101); Mean Platelet Volume 9.3 fL (7.4-10.4); Monocytes # 0.5 10^3/uL (0.2-0.9); Monocytes % 7.7 %; Neutrophils # 3.86 10^3/uL (1.8-7.7); Neutrophils % 60.6 %; Nucleated Red Blood Cells % 0 %; Platelet Count 179 10^3/cmm (157-399); Red Blood Count 4.61 10^6/uL (3.85-5.65); White Blood Count 6.37 10^3/uL (3.29-11.43)
[2023-02-06 10:37] LABS: Anion Gap 15.8 (5-19); Blood Urea Nitrogen 8 mg/dL (8-23); Calcium 9.3 mg/dL (8.5-10.5); Carbon Dioxide 27 mmol/L (22-29); Chloride 102 mmol/L (98-107); Glomerular Filtration Rate 114.3 mL/min (90-130); Glucose 150 mg/dL (65-115); Osmolality Calculated 293 mOsm/kg (285-295); Potassium 3.8 mmol/L (3.5-5.1); Sodium 141 mmol/L (136-145)
== END 2023-02-12 23:59 | disposition home or self-care (01) ==
PROVIDERS: Specialist; PCP Registered Nurse; Visit Provider Internal Medicine Hematology & Oncology
DX: D38.0 Neoplasm of uncertain behavior of larynx (principal); Z01.810 Encounter for preprocedural cardiovascular examination
CPT/HCPCS: 36415; 80048; 85025; 93005; 96523; J1642

== ENCOUNTER 2023-03-02 08:35 | Oncology outpatient (recurring) (ONCR) | payer MEDICARE, MEDICAID, SELFPAY ==
[2023-03-02 09:02] VITALS: BP 111/70; PULSE 70; RESP 16; TEMP 36.7; O2SAT 95
== END 2023-03-14 23:59 | disposition home or self-care (01) ==
LOC: ONCMED 08:35
PROVIDERS: PCP Nurse Practitioner Family; Visit Provider Internal Medicine Medical Oncology
DX: Z45.2 Encounter for adjustment and management of vascular access device (principal)
CPT/HCPCS: 96523; J1642

== ENCOUNTER 2023-03-30 08:53 | Oncology outpatient (recurring) (ONCR) | payer MEDICARE, MEDICAID, SELFPAY ==
[2023-03-30 09:29] VITALS: BP 120/83; PULSE 67; RESP 16; TEMP 36.7; O2SAT 95
[2023-03-30 09:52] LABS: Basophils # 0.1 10^3/uL (0.0-0.1); Basophils % 0.9 %; Eosinophils # 0.1 10^3/uL (0.0-0.8); Eosinophils % 2.1 %; Hematocrit 41.5 % (37-53); Lymphocytes # 1.7 10^3/uL (0.8-4.8); Lymphocytes % 28.8 %; Mean Corpuscular HGB Conc 35.7 g/dL (30-55); Mean Corpuscular Hemoglobin 33.6 pg (27-33); Mean Corpuscular Volume 94.3 fl (82-101); Mean Platelet Volume 9.8 fL (7.4-10.4); Monocytes # 0.4 10^3/uL (0.2-0.9); Monocytes % 7.1 %; Neutrophils # 3.51 10^3/uL (1.8-7.7); Neutrophils % 60.8 %; Nucleated Red Blood Cells % 0 %; Platelet Count 161 10^3/cmm (157-399); Red Cell Distribution Width 12.1 % (12.1-15.1); White Blood Count 5.77 10^3/uL (3.29-11.43)
[2023-03-30 09:58] LABS: Estmated Average Glucose 220; Hemoglobin A1C 9.3 % (4.0-6.0)
[2023-03-30 10:09] LABS: Alanine Aminotransferase 25 U/L (0-41); Alkaline Phosphatase 107 U/L (40-130); Anion Gap 14.2 (5-19); Aspartate Amino Transferase 21 U/L (0-40); Blood Urea Nitrogen 7 mg/dL (8-23); Calcium 9.1 mg/dL (8.5-10.5); Carbon Dioxide 28 mmol/L (22-29); Chloride 97 mmol/L (98-107); Creatinine Clr Calc Pharmacy 111.1023; Globulin 2.9 g/dL (1.3-4.6); Glucose 338 mg/dL (65-115); Osmolality Calculated 291 mOsm/kg (285-295); Potassium 4.2 mmol/L (3.5-5.1); Sodium 135 mmol/L (136-145); Total Bilirubin 0.6 mg/dL (0.15-1.2); Total Protein 6.9 g/dL (6.6-8.7)
== END 2023-04-14 23:59 | disposition home or self-care (01) ==
PROVIDERS: PCP Nurse Practitioner Family; Visit Provider Internal Medicine Medical Oncology
DX: C20 Malignant neoplasm of rectum (principal)
CPT/HCPCS: 36591; 80053; 83036; 85025; J1642

== ENCOUNTER 2023-04-27 08:31 | Oncology outpatient (recurring) (ONCR) | payer MEDICARE, MEDICAID, SELFPAY ==
[2023-04-27 09:00] VITALS: BP 123/78; PULSE 76; RESP 16; TEMP 36.6; O2SAT 95
== END 2023-05-14 23:59 | disposition home or self-care (01) ==
LOC: ONCMED 08:31
PROVIDERS: PCP Nurse Practitioner Family; Visit Provider Internal Medicine Medical Oncology
DX: Z45.2 Encounter for adjustment and management of vascular access device (principal)
CPT/HCPCS: 96523; J1642

== ENCOUNTER 2023-05-18 08:12 | Outpatient (CLI) | payer MEDICARE, MEDICAID, SELFPAY ==
--- NOTE | 2023-05-18 08:16 | CT_ITS ---
WS: [id number] CT CHEST, ABDOMEN, AND PELVIS TECHNIQUE: Contrast-enhanced CT of the chest, abdomen, and pelvis with coronal and sagittal reformatt ed images. CLINICAL INFORMATION: rectal cancer COMPARISON: CT 04/18/2021 and PET/CT 04/26/2022 DLP: 1303.[address] scans at [facility] use at least one of these dose optimization techniques: automated e xposure control; mA and/or kV adjustment per patient size (includes targeted exams where dose is matc hed to clinical indication); or iterative reconstruction. CT CHEST: Moderate chronic emphysematous changes. No acute pulmonary infiltrates. No suspicious pulmonary paren chymal opacities. Aortic calcification. Normal caliber thoracic aorta. Coronary calcification. No med iastinal or hilar lymphadenopathy. No axillary lymphadenopathy. CT ABDOMEN AND PELVIS: Diffuse fatty infiltration of the liver. Normal spleen. Normal GE junction. Adrenal glands are normal . Normal renal parenchymal enhancement. No hydronephrosis. A few incidental renal cysts. Gallbladder is contracted. Normal portal vein and splenic vein. Normal pancreas. Normal caliber abdominal aorta. Aortic calcification. Tiny fat-containing umbilical hernia. Disc space narrowing worse at L5-S1. Norm al-appearing rectal anastomosis. IMPRESSION: 1. No evidence of metastatic disease in the chest abdomen or pelvis. 2. Normal appearing rectal anastomosis. 3. No adenopathy in the chest abdomen or pelvis. 4. Diffuse fatty infiltration of the liver. 5. No other acute findings.
[2023-05-18] MEDS: iohexol 350 mg/mL 500 mL Btl (per mL) PO (09:04)
[2023-05-18] MEDS: iohexol 350 mg/mL 500 mL Btl (per mL) IV (09:41)
== END 2023-05-18 08:13 | disposition home or self-care (01) ==
LOC: RAD 08:12
PROVIDERS: PCP Nurse Practitioner Family; Visit Provider Nurse Practitioner
DX: C20 Malignant neoplasm of rectum (principal); Z98.0 Intestinal bypass and anastomosis status
CPT/HCPCS: 71260; 74177; Q9967

== ENCOUNTER 2023-06-10 10:54 | Oncology outpatient (recurring) (ONCR) | payer MEDICARE, MEDICAID, SELFPAY ==
[2023-06-10 11:00] VITALS: BP 146/88; PULSE 87; RESP 16; TEMP 36.7; O2SAT 95
[2023-06-10 11:18] LABS: Basophils % 0.5 %; Eosinophils # 0.2 10^3/uL (0.0-0.8); Eosinophils % 1.8 %; Hematocrit 42.2 % (37-53); Lymphocytes # 2.1 10^3/uL (0.8-4.8); Lymphocytes % 24.9 %; Mean Corpuscular HGB Conc 35.5 g/dL (30-55); Mean Corpuscular Hemoglobin 31.9 pg (27-33); Mean Corpuscular Volume 89.8 fl (82-101); Mean Platelet Volume 9.1 fL (7.4-10.4); Monocytes # 0.9 10^3/uL (0.2-0.9); Monocytes % 10.1 %; Neutrophils # 5.26 10^3/uL (1.8-7.7); Neutrophils % 62.1 %; Nucleated Red Blood Cells % 0 %; Platelet Count 334 10^3/cmm (157-399); Red Cell Distribution Width 11.4 % (12.1-15.1); White Blood Count 8.45 10^3/uL (3.29-11.43)
[2023-06-10 11:38] LABS: Carcinoembryonic Antigen 5.5 ng/mL (0.0-4.7)
[2023-06-10 11:49] LABS: Alanine Aminotransferase 31 U/L (0-41); Albumin Level 3.9 g/dL (3.5-5.2); Alkaline Phosphatase 115 U/L (40-130); Anion Gap 13.2 (5-19); Aspartate Amino Transferase 33 U/L (0-40); Blood Urea Nitrogen 6 mg/dL (8-23); Calcium 9.4 mg/dL (8.5-10.5); Carbon Dioxide 29 mmol/L (22-29); Chloride 92 mmol/L (98-107); Globulin 3.5 g/dL (1.3-4.6); Glomerular Filtration Rate 113.9 mL/min (90-130); Glucose 289 mg/dL (65-115); Osmolality Calculated 280 mOsm/kg (285-295); Potassium 3.2 mmol/L (3.5-5.1); Sodium 131 mmol/L (136-145); Total Bilirubin 0.6 mg/dL (0.15-1.2); Total Protein 7.4 g/dL (6.6-8.7)
== END 2023-06-14 23:59 | disposition home or self-care (01) ==
PROVIDERS: Nurse Practitioner Family; PCP Nurse Practitioner Family; Visit Provider Internal Medicine Hematology & Oncology
DX: C20 Malignant neoplasm of rectum (principal)
CPT/HCPCS: 36591; 80053; 82378; 85025; 99214; J1642

== ENCOUNTER 2023-07-14 13:28 | Oncology outpatient (recurring) (ONCR) | payer MEDICARE, MEDICAID, SELFPAY ==
[2023-07-14 14:17] LABS: Alanine Aminotransferase 31 U/L (0-41); Alkaline Phosphatase 101 U/L (40-130); Anion Gap 13.8 (5-19); Aspartate Amino Transferase 26 U/L (0-40); Blood Urea Nitrogen 10 mg/dL (8-23); Calcium 9.2 mg/dL (8.5-10.5); Carbon Dioxide 25 mmol/L (22-29); Chloride 97 mmol/L (98-107); Globulin 3.2 g/dL (1.3-4.6); Glomerular Filtration Rate 113.9 mL/min (90-130); Glucose 304 mg/dL (65-115); Osmolality Calculated 284 mOsm/kg (285-295); Potassium 3.8 mmol/L (3.5-5.1); Sodium 132 mmol/L (136-145); Total Bilirubin 0.6 mg/dL (0.15-1.2); Total Protein 7.2 g/dL (6.6-8.7)
== END 2023-07-15 23:59 | disposition home or self-care (01) ==
LOC: ONCMED 13:30
PROVIDERS: Nurse Practitioner Family; PCP Nurse Practitioner Family; Visit Provider Internal Medicine Hematology & Oncology
DX: E87.1 Hypo-osmolality and hyponatremia (principal); E87.6 Hypokalemia
CPT/HCPCS: 36591; 80053

== ENCOUNTER 2023-08-12 13:45 | Oncology outpatient (recurring) (ONCR) | payer MEDICARE, MEDICAID, SELFPAY | END 2023-08-13 23:59 | disposition home or self-care (01) | LOC: ONCMED 13:46 | PROVIDERS: PCP Nurse Practitioner Family; Visit Provider Internal Medicine Hematology & Oncology | DX: Z45.2 Encounter for adjustment and management of vascular access device | CPT/HCPCS: 96523; J1642 ==

== ENCOUNTER 2023-09-10 11:17 | Oncology outpatient (recurring) (ONCR) | payer MEDICARE, MEDICAID, SELFPAY ==
[2023-09-10 12:02] LABS: Basophils # 0.1 10^3/uL (0.0-0.1); Basophils % 1.1 %; Eosinophils # 0.1 10^3/uL (0.0-0.8); Eosinophils % 1.8 %; Hematocrit 43.8 % (37-53); Lymphocytes # 1.9 10^3/uL (0.8-4.8); Lymphocytes % 32.8 %; Mean Corpuscular HGB Conc 35.4 g/dL (30-55); Mean Corpuscular Hemoglobin 32.6 pg (27-33); Mean Corpuscular Volume 92.2 fl (82-101); Mean Platelet Volume 9.2 fL (7.4-10.4); Monocytes # 0.5 10^3/uL (0.2-0.9); Monocytes % 8.8 %; Neutrophils # 3.13 10^3/uL (1.8-7.7); Neutrophils % 55.1 %; Nucleated Red Blood Cells % 0 %; Platelet Count 166 10^3/cmm (157-399); Red Blood Count 4.75 10^6/uL (3.85-5.65); Red Cell Distribution Width 12.4 % (12.1-15.1); White Blood Count 5.67 10^3/uL (3.29-11.43)
[2023-09-10 12:33] LABS: Carcinoembryonic Antigen 4.3 ng/mL (0.0-4.7)
[2023-09-10 12:44] LABS: Alanine Aminotransferase 19 U/L (0-41); Alkaline Phosphatase 92 U/L (40-130); Anion Gap 15.1 (5-19); Aspartate Amino Transferase 23 U/L (0-40); Blood Urea Nitrogen 9 mg/dL (8-23); Calcium 8.9 mg/dL (8.5-10.5); Carbon Dioxide 25 mmol/L (22-29); Chloride 102 mmol/L (98-107); Globulin 2.9 g/dL (1.3-4.6); Glomerular Filtration Rate 113.9 mL/min (90-130); Glucose 189 mg/dL (65-115); Osmolality Calculated 290 mOsm/kg (285-295); Potassium 4.1 mmol/L (3.5-5.1); Sodium 138 mmol/L (136-145); Total Bilirubin 0.5 mg/dL (0.15-1.2); Total Protein 6.9 g/dL (6.6-8.7)
== END 2023-09-13 23:59 | disposition home or self-care (01) ==
PROVIDERS: Nurse Practitioner Family; PCP Nurse Practitioner Family; Visit Provider Internal Medicine
DX: C20 Malignant neoplasm of rectum (principal); Z95.828 Presence of other vascular implants and grafts
CPT/HCPCS: 36591; 80053; 82378; 85025; 99214; J1642

== ENCOUNTER 2023-09-28 07:38 | Outpatient (CLI) | payer MEDICARE, MEDICAID, SELFPAY ==
--- NOTE | 2023-09-28 08:30 | CT_ITS ---
WS: [id number] CT CHEST, ABDOMEN, AND PELVIS TECHNIQUE: Contrast-enhanced CT of the chest, abdomen, and pelvis with coronal and sagittal reformatt ed images. CLINICAL INFORMATION: rectal cancer COMPARISON: None. DLP: 1310.[address] scans at [facility] use at least one of these dose optimization techniques: automated e xposure control; mA and/or kV adjustment per patient size (includes targeted exams where dose is matc hed to clinical indication); or iterative reconstruction. CT CHEST: Lungs are well aerated. Moderate chronic emphysematous changes. No acute pulmonary infiltrates. No ev idence of metastatic disease in the chest. Normal caliber thoracic aorta. Normal caliber descending thoracic aorta. Coronary calcification. Aort ic calcification. No mediastinal or hilar lymphadenopathy. No axillary lymphadenopathy. Mild thoracic kyphosis. CT ABDOMEN AND PELVIS: Diffuse fatty infiltration of the liver. Gallbladder is contracted. Normal portal vein and splenic ve in. Normal spleen. Normal GE junction. Normal pancreatic parenchymal enhancement. Normal caliber abdo pretty aorta. RIGHT adrenal gland is normal. Small LEFT adrenal nodule likely adenoma measuring 1.5 cm unchanged since 2020. No hydronephrosis in either kidney. Small bilateral renal cysts. Prostate enlargement measuring 4.1 cm. Evidence of bladder outlet obstruction. Postoperative changes rectosigmoid anastomosis. Associated treatment related changes. Small amount of presacral soft tissue thickening likely treatment related. No evidence of recurrent mass or lesion. No perirectal lymphade nopathy. No pelvic lymphadenopathy. No inguinal lymphadenopathy. IMPRESSION: 1. No evidence of metastatic disease in the chest abdomen or pelvis. 2. Prior postoperative changes rectosigmoid anastomosis. No evidence of recurrent mass or lesion. As sociated treatment related changes. 3. No lymphadenopathy in the chest abdomen or pelvis.
[2023-09-28] MEDS: iohexol 350 mg/mL 500 mL Btl (per mL) PO (08:42)
[2023-09-28] MEDS: iohexol 350 mg/mL 500 mL Btl (per mL) IV (08:55)
== END 2023-09-28 07:39 | disposition home or self-care (01) ==
LOC: RAD 07:38
PROVIDERS: PCP Nurse Practitioner Family; Visit Provider Internal Medicine
DX: E87.6 Hypokalemia (principal); E87.1 Hypo-osmolality and hyponatremia; C20 Malignant neoplasm of rectum
CPT/HCPCS: 71260; 74177; Q9967

== ENCOUNTER 2023-10-22 13:32 | Oncology outpatient (recurring) (ONCR) | payer MEDICARE, MEDICAID, SELFPAY | END 2023-11-13 23:59 | disposition home or self-care (01) | LOC: ONCMED 13:32 | PROVIDERS: PCP Nurse Practitioner Family; Visit Provider Internal Medicine | DX: Z45.2 Encounter for adjustment and management of vascular access device | CPT/HCPCS: 96523 ==

== ENCOUNTER 2023-11-11 11:13 | Outpatient (CLI) | payer MEDICARE, MEDICAID, SELFPAY ==
--- NOTE | 2023-11-11 11:16 | MR_ITS ---
WS: [id number] MRI BRAIN WITHOUT CONTRAST HISTORY: HEADACHE COMPARISON: None available. TECHNIQUE: Diffusion imaging, multiplanar T1, T2 and FLAIR imaging obtained. No evidence for acute infarct or hemorrhage. Yancey-white matter differentiation is normal. Mild symmetric atrophy and mild small vessel ischemic disease. No prior large territory infarct. Belén ocampal formations normal. Ventricles and extra-axial spaces are normal. No inferior displacement of cerebellar tonsils. The sella turcica and pituitary gland are unremarkabl e. Dural venous sinuses and stillaguamish of Baez demonstrate no abnormality on this unenhanced studies. Paranasal sinuses: Clear. Mastoid air cells: Normal. Calvarium and scalp: Intact. MR/MR head wo con* [id number] IMPRESSION: 1. No acute infarct or edema. 2. Mild atrophy and mild small vessel ischemic disease.
== END 2023-11-11 11:14 | disposition home or self-care (01) ==
LOC: RAD 11:13
PROVIDERS: PCP Nurse Practitioner Family; Visit Provider Nurse Practitioner Family
DX: R51.9 Headache, unspecified (principal)
CPT/HCPCS: 70551

== ENCOUNTER 2024-01-11 09:23 | Oncology outpatient (recurring) (ONCR) | payer MEDICARE, MEDICAID, SELFPAY ==
[2024-01-11 09:47] LABS: Basophils # 0.1 10^3/uL (0.0-0.1); Basophils % 0.7 %; Eosinophils # 0.1 10^3/uL (0.0-0.8); Eosinophils % 1.6 %; Hematocrit 45.7 % (37-53); Lymphocytes # 1.9 10^3/uL (0.8-4.8); Lymphocytes % 25.5 %; Mean Corpuscular Hemoglobin 32.7 pg (27-33); Mean Corpuscular Volume 93.5 fl (82-101); Mean Platelet Volume 9.1 fL (7.4-10.4); Monocytes # 0.6 10^3/uL (0.2-0.9); Monocytes % 7.5 %; Neutrophils # 4.74 10^3/uL (1.8-7.7); Neutrophils % 64.4 %; Nucleated Red Blood Cells % 0 %; Platelet Count 187 10^3/cmm (157-399); Red Blood Count 4.89 10^6/uL (3.85-5.65); Red Cell Distribution Width 13.1 % (12.1-15.1); White Blood Count 7.36 10^3/uL (3.29-11.43)
[2024-01-11 10:05] LABS: Carcinoembryonic Antigen 3.2 ng/mL (0.0-4.7)
[2024-01-11 10:16] LABS: Alanine Aminotransferase 13 U/L (0-41); Albumin Level 4.1 g/dL (3.5-5.2); Alkaline Phosphatase 82 U/L (40-130); Anion Gap 16.4 (5-19); Aspartate Amino Transferase 18 U/L (0-40); Blood Urea Nitrogen 7 mg/dL (8-23); Calcium 8.6 mg/dL (8.5-10.5); Carbon Dioxide 24 mmol/L (22-29); Chloride 103 mmol/L (98-107); Globulin 2.8 g/dL (1.3-4.6); Glomerular Filtration Rate 113.9 mL/min (90-130); Glucose 198 mg/dL (65-115); Osmolality Calculated 294 mOsm/kg (285-295); Potassium 3.4 mmol/L (3.5-5.1); Sodium 140 mmol/L (136-145); Total Bilirubin 0.7 mg/dL (0.15-1.2); Total Protein 6.9 g/dL (6.6-8.7)
== END 2024-01-13 23:59 | disposition home or self-care (01) ==
PROVIDERS: PCP Nurse Practitioner Family; Visit Provider Internal Medicine Medical Oncology
DX: C20 Malignant neoplasm of rectum (principal)
CPT/HCPCS: 36591; 80053; 82378; 85025; 99214

== ENCOUNTER 2024-03-07 14:23 | Oncology outpatient (recurring) (ONCR) | payer MEDICARE, MEDICAID, SELFPAY | END 2024-03-14 23:59 | disposition home or self-care (01) | LOC: ONCMED 14:24 | PROVIDERS: PCP Nurse Practitioner Family; Visit Provider Internal Medicine Medical Oncology | DX: Z45.2 Encounter for adjustment and management of vascular access device (principal) | CPT/HCPCS: 36591; 96523 ==

== ENCOUNTER 2024-05-09 09:18 | Oncology outpatient (recurring) (ONCR) | payer MEDICARE, MEDICAID, SELFPAY | END 2024-05-14 23:59 | disposition home or self-care (01) | PROVIDERS: PCP Nurse Practitioner Family; Visit Provider Internal Medicine Medical Oncology | DX: Z45.2 Encounter for adjustment and management of vascular access device (principal); Z53.9 Procedure and treatment not carried out, unspecified reason | CPT/HCPCS: 96523 ==

== ENCOUNTER 2024-07-13 12:37 | Oncology outpatient (recurring) (ONCR) | payer MEDICARE, MEDICAID, SELFPAY ==
[2024-07-11 10:54] LABS: Basophils # 0.1 10^3/uL (0.0-0.1); Basophils % 0.7 %; Eosinophils # 0.1 10^3/uL (0.0-0.8); Eosinophils % 1.5 %; Hematocrit 46.7 % (37-53); Lymphocytes # 2.6 10^3/uL (0.8-4.8); Lymphocytes % 29.1 %; Mean Corpuscular Hemoglobin 34.8 pg (27-33); Mean Corpuscular Volume 96.7 fl (82-101); Monocytes # 0.7 10^3/uL (0.2-0.9); Monocytes % 7.6 %; Neutrophils # 5.34 10^3/uL (1.8-7.7); Neutrophils % 60.8 %; Nucleated Red Blood Cells % 0 %; Platelet Count 174 10^3/cmm (157-399); Red Blood Count 4.83 10^6/uL (3.85-5.65); Red Cell Distribution Width 12.5 % (12.1-15.1); White Blood Count 8.79 10^3/uL (3.29-11.43)
--- NOTE | 2024-07-11 11:00 | CTR_ITS ---
PROCEDURE INFORMATION: Exam: CT Chest With Contrast; Diagnostic Exam date and time: 07/11/2024 11:10 AM Age: 64 years old Clinical indication: Condition or disease; Other: Rectal cancer; Prior surgery; Surgery date: 6+ months; Surgery type: Colon, appy, port TECHNIQUE: Imaging protocol: Diagnostic computed tomography of the chest with contrast. Radiation optimization: All CT scans at this facility use at least one of these dose optimization techniques: automated exposure control; mA and/or kV adjustment per patient size (includes targeted exams where dose is matched to clinical indication); or iterative reconstruction. Contrast material: OMNI 350; Contrast volume: 100 ml; Contrast route: INTRAVENOUS (IV); COMPARISON: CT chest abdpel w/*[id number] 09/28/2023 8:48 AM RADIATION DOSE METRICS: Total DLP (mGy-cm): 1281.77 FINDINGS: Lungs: Unremarkable. No consolidation. No masses. Pleural spaces: Unremarkable. No pneumothorax. No pleural effusion. Heart: Unremarkable. No cardiomegaly. No pericardial effusion. Lymph nodes: Unremarkable. No enlarged lymph nodes. Vasculature: Unremarkable. No aortic aneurysm. Bones/joints: Unremarkable. No acute fracture. Soft tissues: Unremarkable. PROCEDURE INFORMATION: Exam: CT Abdomen And Pelvis With Contrast Exam date and time: 07/11/2024 11:10 AM Age: 64 years old Clinical indication: Condition or disease; Other: Rectal cancer; Prior surgery; Surgery date: 6+ months; Surgery type: Colon, appy, port TECHNIQUE: Imaging protocol: Computed tomography of the abdomen and pelvis with contrast. Radiation optimization: All CT scans at this facility use at least one of these dose optimization techniques: automated exposure control; mA and/or kV adjustment per patient size (includes targeted exams where dose is matched to clinical indication); or iterative reconstruction. Contrast material: OMNI 350; Contrast volume: 100 ml; Contrast route: INTRAVENOUS (IV); COMPARISON: CT chest abdpel w/*[id number] 09/28/2023 8:48 AM RADIATION DOSE METRICS: Total DLP (mGy-cm): 1281.77 FINDINGS: Liver: Normal. No mass. Gallbladder and biliary ducts: Normal. No calcified stones. No ductal dilation. Pancreas: Normal. No ductal dilation. Spleen: Normal. No splenomegaly. Adrenal glands: Normal. No mass. Kidneys and ureters: Normal. No hydronephrosis. Stomach and bowel: Unremarkable. No obstruction. No mucosal thickening. Appendix: No evidence of appendicitis. Intraperitoneal space: Unremarkable. No free air. No significant fluid collection. Vasculature: Unremarkable. No abdominal aortic aneurysm. Lymph nodes: Unremarkable. No enlarged lymph nodes. Urinary bladder: Slight thickening of the wall of the urinary bladder. Reproductive: Unremarkable as visualized. Bones/joints: Unremarkable. No acute fracture. Soft tissues: Unremarkable. CT/CT chest abdpel w/*[id number] IMPRESSION: No acute findings. IMPRESSION: No acute subdiaphragmatic pathology. Slightly thickened urinary bladder wall.
[2024-07-11] MEDS: iohexol 350 mg/mL 500 mL Btl (per mL) PO (11:05)
[2024-07-11 11:11] LABS: Blood Urea Nitrogen 8 mg/dL (8-23)
[2024-07-11] MEDS: iohexol 350 mg/mL 500 mL Btl (per mL) IV (11:18)
[2024-07-11 11:23] LABS: Carcinoembryonic Antigen 4.3 ng/mL (0.0-4.7)
[2024-07-11 11:36] LABS: Alanine Aminotransferase 15 U/L (0-41); Albumin Level 4.3 g/dL (3.5-5.2); Alkaline Phosphatase 86 U/L (40-130); Anion Gap 16.8 (5-19); Aspartate Amino Transferase 15 U/L (0-40); Blood Urea Nitrogen 8 mg/dL (8-23); Calcium 9.7 mg/dL (8.5-10.5); Carbon Dioxide 26 mmol/L (22-29); Chloride 95 mmol/L (98-107); Globulin 2.8 g/dL (1.3-4.6); Glucose 116 mg/dL (65-115); Osmolality Calculated 277 mOsm/kg (285-295); Potassium 3.8 mmol/L (3.5-5.1); Sodium 134 mmol/L (136-145); Total Bilirubin 0.7 mg/dL (0.15-1.2); Total Protein 7.1 g/dL (6.6-8.7)
== END 2024-07-15 23:59 | disposition home or self-care (01) ==
LOC: RAD 12:38 → ONCMED 07-14 09:33
PROVIDERS: Internal Medicine Medical Oncology; PCP Nurse Practitioner Family; Visit Provider Nurse Practitioner Family
DX: Z08 Encounter for follow-up examination after completed treatment for malignant neoplasm (principal); Z85.048 Personal history of other malignant neoplasm of rectum, rectosigmoid junction, and anus; N32.89 Other specified disorders of bladder; Z92.3 Personal history of irradiation; Z92.21 Personal history of antineoplastic chemotherapy
CPT/HCPCS: 36591; 71260; 74177; 80053; 82378; 82565; 84520; 85025; 99214

== ENCOUNTER → 2024-07-18 15:04 | Outpatient (BNVA) | payer MEDICARE, MEDICAID, SELFPAY | PROVIDERS: PCP Nurse Practitioner Family; Visit Provider Surgery | DX: Z95.828 Presence of other vascular implants and grafts (principal); C20 Malignant neoplasm of rectum | CPT/HCPCS: 36590; 99214 ==

== ENCOUNTER 2024-11-21 07:10 | Outpatient (CLI) | payer MEDICARE, MEDICAID, SELFPAY ==
--- NOTE | 2024-11-21 07:13 | CT_ITS ---
WS: [id number] CT NECK WITH CONTRAST HISTORY: UNSPECIFIED DISEASE OF LARYNX TECHNIQUE: Contiguous 2 mm axial images are performed through the neck with intravenous contrast. Sagittal and coronal reformats are also submitted. All CT scans at [facility] use at least one of these dose optimization techniques: automated exposure control; mA and/or kV adjustment per patient size (includes targeted exams where dose is matched to clinical indication); or iterative reconstruction. CONTRAST: CONTRAST: Omnipaque 350; 100 mL IV. DLP: 244.91 mGy.cm COMPARISON: 04/17/2016 Focal narrowing of the larynx. This may be due to breath-holding and Valsalva maneuver during imaging. There is also mild thickening of the posterior pharyngeal wall and the paraglottic space. No discrete mass identified. There does appear to be very slight increased vascularity. Mild narrowing of the LEFT piriform space. Tongue base is appropriate. Epiglottis is normal. Subglottic airway is normal. No significant lymphadenopathy is identified. Thyroid gland and salivary glands are normally enhancing with no masses. Facet joint arthritis throughout the cervical spine. No fractures. Visualized portions of the skull base demonstrate no abnormalities. Orbits and globes are within normal limits. No soft tissue masses. Visualized paranasal sinuses and mastoid air cells are normal. Lung apices are clear. Mild carotid artery atherosclerosis with no high-grade stenosis. CT/CT neck w con* [id number] IMPRESSION: 1. Mild laryngeal stenosis. This may be related to Valsalva maneuver during th e examination. 2. There is mild enhancement without a discrete mass involving the posterior p haryngeal wall and the paraglottic space at the level of the vocal cords. No fo perico mass identified. Direct visualization suggested. 3. No cervical chain adenopathy.
[2024-11-21] MEDS: iohexol 350 mg/mL 500 mL Btl (per mL) IV (07:48)
[2024-11-21 07:49] LABS: Blood Urea Nitrogen 7 mg/dL (8-23)
== END 2024-11-21 07:11 | disposition home or self-care (01) ==
PROVIDERS: PCP Nurse Practitioner Family; Visit Provider Specialist
DX: J38.7 Other diseases of larynx (principal); D38.0 Neoplasm of uncertain behavior of larynx; J38.6 Stenosis of larynx; R93.89 Abnormal findings on diagnostic imaging of other specified body structures; M47.892 Other spondylosis, cervical region; I65.23 Occlusion and stenosis of bilateral carotid arteries
CPT/HCPCS: 70491; 82565; 84520

== ENCOUNTER 2025-01-04 12:14 | Oncology outpatient (recurring) (ONCR) | payer MEDICARE, MEDICAID, SELFPAY ==
[2025-01-04 12:31] LABS: Hematocrit 44.4 % (37-53); Hemoglobin 15.70 g/dL (11.27-16.99); Mean Corpuscular HGB Conc 35.4 g/dL (30-55); Mean Corpuscular Hemoglobin 33.8 pg (27-33); Mean Corpuscular Volume 95.7 fl (82-101); Nucleated Red Blood Cells % 0 %; Platelet Count 150 10^3/cmm (157-399); Red Blood Count 4.64 10^6/uL (3.85-5.65); White Blood Count 6.23 10^3/uL (3.29-11.43)
[2025-01-04 12:56] LABS: Carcinoembryonic Antigen 3.9 ng/mL (0.0-4.7)
[2025-01-04 13:09] LABS: Alanine Aminotransferase 9 U/L (0-41); Albumin Level 4.2 g/dL (3.5-5.2); Alkaline Phosphatase 75 U/L (40-130); Anion Gap 17.8 (5-19); Aspartate Amino Transferase 13 U/L (0-40); Blood Urea Nitrogen 9 mg/dL (8-23); Calcium 9.4 mg/dL (8.5-10.5); Carbon Dioxide 25 mmol/L (22-29); Chloride 98 mmol/L (98-107); Creatinine Clr Calc Pharmacy 72.1690; Globulin 3.2 g/dL (1.3-4.6); Glucose 127 mg/dL (65-115); Osmolality Calculated 284 mOsm/kg (285-295); Potassium 3.8 mmol/L (3.5-5.1); Sodium 137 mmol/L (136-145); Total Protein 7.4 g/dL (6.6-8.7)
== END 2025-01-12 23:59 | disposition home or self-care (01) ==
PROVIDERS: PCP Nurse Practitioner Family; Visit Provider Nurse Practitioner Family
DX: Z08 Encounter for follow-up examination after completed treatment for malignant neoplasm (principal); Z85.048 Personal history of other malignant neoplasm of rectum, rectosigmoid junction, and anus; F17.210 Nicotine dependence, cigarettes, uncomplicated
CPT/HCPCS: 36415; 80053; 82378; 85025; 99213

== ENCOUNTER → 2025-01-16 10:15 | Outpatient (BNVA) | payer MEDICARE, MEDICAID, SELFPAY | PROVIDERS: PCP Nurse Practitioner Family; Visit Provider Internal Medicine Cardiovascular Disease | DX: I48.91 Unspecified atrial fibrillation (principal); Z79.01 Long term (current) use of anticoagulants; I10 Essential (primary) hypertension; E11.9 Type 2 diabetes mellitus without complications; Z79.84 Long term (current) use of oral hypoglycemic drugs; J43.8 Other emphysema; F17.210 Nicotine dependence, cigarettes, uncomplicated; Z86.73 Personal history of transient ischemic attack (TIA), and cerebral infarction without residual deficits; I25.2 Old myocardial infarction; R07.9 Chest pain, unspecified | CPT/HCPCS: 93005; 99214 ==